=== PATIENT | female | born 1930 | race Caucasian/White ===

== ENCOUNTER 2017-07-21 10:14 | Emergency (ER) | payer MEDICARE, BC ==
[~2017-07-21] VITALS: Ht 154.9 cm; Wt 56.7 kg
[~2017-07-21 10:14] MED LIST: BACTRIM DS TAB1 EACH PO; ESIDRIX25 MG PO; HYDROCHLOROTH12.5 MG PO; LEVAQUIN250 MG PO; LEXAPRO10 MG PO; LISINOPRIL-HCT1 EAC2 PO; LISINOPRIL-HCT1 EACH PO; LISINOPRIL10 MG PO; LOMOTIL TABLET1 EACH PO; MACROBID 100 M100 MG PO; NORCO 5-325 TA1 EACH PO; OMEPRAZOLE20 M1 PO; OMEPRAZOLE40 MG PO; PRAVASTATIN SOD40 MG PO
[2017-07-21 11:22] LABS: BILIRUBIN,URINE NEGATIVE (NEGATIVE); KETONES,URINE NEGATIVE (NEGATIVE); LEUKOCYTE ESTERASE ,URINE 2+ (NEGATIVE); NITRITE,URINE NEGATIVE (NEGATIVE); URINE UROBILINOGEN 0.2 mg/dL (0.2 - 1)
[2017-07-21 11:23] LABS: CLARITY,URINE SL CLOUDY (CLEAR); COLOR,URINE AMBER (YELLOW); PROTEIN,URINE DIPSTICK 2+ (NEGATIVE)
[2017-07-21 11:38] LABS: BACTERIA,URINE FEW /HPF; EPITHELIAL CELLS,URINE FEW /LPF; MUCUS,URINE FEW (RARE); RBC,URINE >50 /HPF (0-5)
== END 2017-07-21 11:42 | disposition home or self-care (01) ==
LOC: ER 10:14
DX: Z43.5 Encounter for attention to cystostomy (principal)
CPT/HCPCS: 81001; 87086; 99283

== ENCOUNTER 2017-08-18 19:18 | Emergency (ER) | payer MEDICARE, BC ==
[~2017-08-18] VITALS: Ht 154.9 cm; Wt 56.7 kg
--- OUTSIDE RECORDS SUMMARY | 2017-08-18 19:21 | XMS REPORT | Continuity of Care Document ---
Author Author [facility] Organization [facility] Address [address] [place] [address] Phone Unavailable Care Team Providers Care Special Shopper Name Role Phone NONSTAFF PCP Unavailable Insurance Providers Guarantor Gabriela Campbell Address [address] [place] [address] Payer [facility] Policy Number [id number] Subscriber's Name AdrianJeniGabriela G Relationship 18 Self / Same As Patient Group Number [id number] Group Name RETIRED Effective Date 00 Payer Medicare A & B Policy Number [id number] Subscriber's Name AdrianJeniGabriela G Relationship 18 Self / Same As Patient Group Number [id number] Group Name RETIRED Effective Date 95 Advance Directives Directive Response Recorded Date/Time Does the patient have an advance directive? Yes 05/19/15 12:20pm If yes, is advance directive on file with [facility]? No 05/19/15 12:20pm If not on file with [facility] will patient provide a copy? Yes 05/19/15 12:20pm Problems Medical Problem Onset Date Status Diarrhea 03/15/2014 Acute Dislodged [place] catheter Unknown Acute Laceration Unknown Acute Skin tear Unknown Acute Suprapubic catheter dysfunction Unknown Acute UTI (lower urinary tract infection) 03/15/2014 Acute Urinary tract infection Unknown Acute Medications Current Home Medications Medication Dose Units Route Directions Days Qty Instructions Start Date Hydrocodone Bit/Acetaminophen ([place] 5-325 Tablet) 1 Each Tablet 1 Each Oral Daily as needed for Pain Lisinopril/Hydrochlorothiazide (Lisinopril-Hctz 5 Mg Tab) 1 Each Tablet 1 Tab Oral Daily Omeprazole 40 Mg Capsule. 20 Mg Oral Daily Past Home Medications Medication Directions Ordered Status Diphenoxylate Hcl/Atropine (Lomotil Tablet) 1 Each Tablet, 2.5 Mg Oral Daily Discontinued Escitalopram Oxalate (Lexapro) 10 Mg Tablet, 10 Mg Oral Daily Discontinued Hydrochlorothiazide 12.5 Mg Tablet, 12.5 Mg Oral Daily Discontinued Hydrochlorothiazide (Esidrix*) 25 Mg Tab, 25 Mg Oral Daily Discontinued Levofloxacin (Levaquin) 250 Mg Tablet, 250 Mg Oral Daily Discontinued Lisinopril 10 Mg Tablet, 10 Mg Oral Daily Discontinued Lisinopril/Hydrochlorothiazide (Lisinopril-Hctz 20-12.5 Mg Tab) 1 Each Tablet, 1 Tab Oral Daily Discontinued Nitrofurantoin Monohyd/M-Cryst (Macrobid 100 Mg Capsule) 100 Mg Capsule, 1 Tab Oral Twice A Day 03/20/14 Discontinued Omeprazole 20 Mg Tablet.dr, 20 Mg Oral Daily Discontinued Omeprazole 40 Mg Capsule.dr, 20 Mg Oral Daily Discontinued Pravastatin Sodium 40 Mg Tablet, 40 Mg Oral Daily Discontinued Sulfamethoxazole/Trimethoprim (Bactrim Ds Tablet) 1 Each Tablet, 1 Each Oral Twice A Day 03/20/14 Discontinued Sulfamethoxazole/Trimethoprim (Bactrim Ds Tablet) 1 Each Tablet, 1 Tab Oral Twice A Day Discontinued Social History Social History Problem Response Recorded Date/Time Onset Date Status Hx Psychiatric Problems Yes 12/22/2016 11:41pm Not Applicable Not Applicable Hx Eating Disorder No 12/22/2016 11:41pm Not Applicable Not Applicable Hx Substance Use Disorder No 12/22/2016 11:41pm Not Applicable Not Applicable Hx Depression No 12/22/2016 11:41pm Not Applicable Not Applicable Hx Alcohol Use No 12/22/2016 11:41pm Not Applicable Not Applicable Hx Substance Use Treatment No 12/22/2016 11:41pm Not Applicable Not Applicable Hx Physical Abuse No 12/22/2016 11:41pm Not Applicable Not Applicable Smoking Status Start Date Stop Date Never Smoker Hospital Discharge Instructions No hospital discharge instruction information available. Plan of Care Discharge Date 07/21/17 11:42am Disposition HOME, SELF-CARE Condition at Discharge Stable Instructions/Education Provided [place] Catheter Care Urinary Tract Infection - Women Forms Provided Work/School Excuse Prescriptions See Medication Section Referrals Dimas Ceron ORI MD Address: [address] [place] [address] Additional Instructions/Education 1. increase oral fluids 2. folow up with Dr Morse in 1-2 days without fail 3. return to ed as needed Functional Status No functional status information available. Allergies, Adverse Reactions, Alerts No known allergies. Immunizations No immunization information available. Vital Signs Acute Vital Signs Vital Response Date/Time Temperature (Fahrenheit) 97.3 degrees F (97.6 - 99.5) 12/23/2016 8:00pm Pulse Pulse Rate (adult) 79 bpm (60 - 90) 12/23/2016 8:00pm Respiratory Rate 17 bpm (12 - 24) 12/23/2016 8:00pm Blood Pressure 130/57 mm Hg 12/23/2016 8:00pm Height 5 ft 1 in 07/21/2017 10:17am Weight 125 lb 07/21/2017 10:17am Body Mass Index 23.6 kg/m^2 07/21/2017 10:17am Results Laboratory Results Test Name Result Units Flags Reference Collection Date/Time Result Date/ Time Comments White Blood Count 12.06 x10e3/uL H 4.8-10.8 12/23/2016 5:50am 2016 6:21am Red Blood Count 3.84 x10e6/uL 3.6-5.1 12/23/2016 5:50am 12/23/2016 6: 21am Hemoglobin 11.1 g/dL L 12.0-16.0 12/23/2016 5:50am 12/23/2016 6:21am Hematocrit 34.8 % 34.2-44.1 12/23/2016 5:50am 12/23/2016 6:21am Mean Corpuscular Volume 90.6 fL 81-99 12/23/2016 5:50am 12/23/2016 6: 21am Mean Corpuscular Hemoglobin 28.9 pg 28-32 12/23/2016 5:50am 12/23/2016 6:21am Mean Corpuscular Hemoglobin Concent 31.9 g/dL 31-35 12/23/2016 5:50am 12/23/2016 6:21am Red Cell Distribution Width 14.4 % 11.7-14.4 12/23/2016 5:50am 2016 6:21am Platelet Count 222 x10e3/uL 140-360 12/23/2016 5:50am 12/23/2016 6: 21am Neutrophils (%) (Auto) 75.8 % 38.7-80.0 12/23/2016 5:50am 12/23/2016 6: 21am Lymphocytes (%) (Auto) 17.7 % L 18.0-39.1 12/23/2016 5:50am 12/23/2016 6 :21am Monocytes (%) (Auto) 4.8 % 4.4-11.3 12/23/2016 5:50am 12/23/2016 6: 21am Eosinophils (%) (Auto) 0.8 % 0.0-6.0 12/23/2016 5:50am 12/23/2016 6: 21am Basophils (%) (Auto) 0.3 % 0.0-1.0 12/23/2016 5:50am 12/23/2016 6:21am IM GRANULOCYTES % 0.6 % 0.0-1.0 12/23/2016 5:50am 12/23/2016 6:21am Neutrophils # (Auto) 9.1 H 2.1-6.9 12/23/2016 5:50am 12/23/2016 6: 21am Lymphocytes # (Auto) 2.1 1.0-3.2 12/23/2016 5:50am 12/23/2016 6:21am Monocytes # (Auto) 0.6 0.2-0.8 12/23/2016 5:50am 12/23/2016 6:21am Eosinophils # (Auto) 0.1 0.0-0.4 12/23/2016 5:50am 12/23/2016 6:21am Basophils # (Auto) 0.0 0.0-0.1 12/23/2016 5:50am 12/23/2016 6:21am Absolute Immature Granulocyte (auto 0.07 x10e3/uL 0-0.1 12/23/2016 5: 50am 12/23/2016 6:21am Prothrombin Time 14.6 seconds H 11.9-14.5 12/22/2016 7:25pm 12/22/2016 7 :39pm Prothromb Time International Ratio 1.08 12/22/2016 7:25pm 2016 7:39pm Oral Anticoagulant Therapy INR Values: 1. Low Intensity Therapy 1.5 - 2.0 2. Moderate Intensity Therapy 2.0 - 3.0 3. High Intensity Therapy(1) 2.5 - 3.5 4. High Intensity Therapy(2) 3.0 - 4.0 5. Panic Value INR > 5.0 Activated Partial Thromboplast Time 31.7 seconds 23.8-35.5 12/22/2016 7: 25pm 12/22/2016 7:41pm Sodium Level 144 mmol/L 136-145 12/23/2016 5:50am 12/23/2016 6:43am Potassium Level 4.6 mmol/L 3.5-5.1 12/23/2016 5:50am 12/23/2016 6:43am Chloride Level 109 mmol/L H 98-107 12/23/2016 5:50am 12/23/2016 6:43am Carbon Dioxide Level 25 mmol/L 22-29 12/23/2016 5:50am 12/23/2016 6: 43am Anion Gap 14.6 mmol/L 8-12/23/2016 5:50am 12/23/2016 6:43am Blood Urea Nitrogen 22 mg/dL 7-12/23/2016 5:50am 12/23/2016 6:43am Creatinine 1.11 mg/dL 0.57-1.11 12/23/2016 5:50am 12/23/2016 6:43am BUN/Creatinine Ratio 20 6-25 12/23/2016 5:50am 12/23/2016 6:43am Estimat Glomerular Filtration Rate 47 ML/MIN L 60- 12/23/2016 5:50am 6:43am Ranges were taken from the National Kidney Disease Education Program and the National Kidney Foundation literature. Reference ranges: 60 or greater: Normal 16-59 (for 3 consecutive months): Chronic kidney disease 15 or less: Kidney failure Glucose Level 127 mg/dL H 74-118 12/23/2016 5:50am 12/23/2016 6:43am Calcium Level 8.7 mg/dL 8.4-10.2 12/23/2016 5:50am 12/23/2016 6:43am Total Bilirubin 0.5 mg/dL 0.2-1.2 12/23/2016 5:50am 12/23/2016 6:43am Aspartate Amino Transf (AST/SGOT) 10 IU/L 5-34 12/23/2016 5:50am 2016 6:43am Alanine Aminotransferase (ALT/SGPT) 7 IU/L 0-55 12/23/2016 5:50am 12/23 6:43am Total Protein 6.7 g/dL 6.5-8.1 12/23/2016 5:50am 12/23/2016 6:43am Albumin 2.8 g/dL L 3.5-5.0 12/23/2016 5:50am 12/23/2016 6:43am Globulin 3.9 g/dL H 2.3-3.5 12/23/2016 5:50am 12/23/2016 6:43am Albumin/Globulin Ratio 0.7 L 0.8-2.0 12/23/2016 5:50am 12/23/2016 6: 43am Alkaline Phosphatase 86 IU/L 40-150 12/23/2016 5:50am 12/23/2016 6: 43am Urine Color RICHY H YELLOW 07/21/2017 11:00am 07/21/2017 11:23am Urine Clarity SL CLOUDY CLEAR 07/21/2017 11:00am 07/21/2017 11:23am Urine Specific [place] 1.015 1.010-1.025 07/21/2017 11:00am 2017 11:23am Urine pH 6.5 5 - 7 07/21/2017 11:00am 07/21/2017 11:23am Urine Leukocyte Esterase 2+ H NEGATIVE 07/21/2017 11:00am 07/21/2017 11:23am Urine Nitrite NEGATIVE NEGATIVE 07/21/2017 11:00am 07/21/2017 11: 23am Urine Protein 2+ H NEGATIVE 07/21/2017 11:00am 07/21/2017 11:23am Urine Glucose (UA) NEGATIVE NEGATIVE 07/21/2017 11:00am 07/21/2017 11 :23am Urine Ketones NEGATIVE NEGATIVE 07/21/2017 11:00am 07/21/2017 11: 23am Urine Urobilinogen 0.2 mg/dL 0.2 - 1 07/21/2017 11:00am 07/21/2017 11: 23am Urine Bilirubin NEGATIVE NEGATIVE 07/21/2017 11:00am 07/21/2017 11: 23am Urine Blood 4+ H NEGATIVE 07/21/2017 11:00am 07/21/2017 11:23am Urine WBC 11-20 /HPF H 0-5 07/21/2017 11:00am 07/21/2017 11:38am Urine RBC >50 /HPF H 0-5 07/21/2017 11:00am 07/21/2017 11:38am Urine Bacteria FEW /HPF NONE 07/21/2017 11:00am 07/21/2017 11:38am Urine Epithelial Cells FEW /LPF NONE 07/21/2017 11:00am 07/21/2017 11: 38am Urine Mucus FEW H RARE 07/21/2017 11:00am 07/21/2017 11:38am Procedures Procedure Status Date Provider(s) INSERT TEMP BLADDER CATH Completed 11/06/16 ALYCIA EATON MD CHANGE OF BLADDER TUBE Completed 12/01/16 LORRAINE WALSH MD CHANGE OF BLADDER TUBE Completed 12/14/16 LORRAINE WALSH MD CHANGE OF BLADDER TUBE Completed 12/22/16 MILAGROS CULVER MD HYDRATION IV INFUSION INIT Completed 12/22/16 CHANGE OF BLADDER TUBE Completed 01/20/17 CANDY FRAGOSO MD Encounters Encounter Location Arrival/Admit Date Discharge/Depart Date Attending Provider Departed Emergency [facility] 07/21/17 10:14am 07/21 11:42am JESSICA COLÓN Departed Emergency [facility] 01/20/17 7:31am 9:59am CANDY FRAGOSO MD Discharged Inpatient (obs) [facility] 12/22/16 10:25pm 6:32pm NIRMAL NIELSON MD Departed Emergency [facility] 12/14/16 8:43pm 12:13am LORRAINE WALSH MD Departed Emergency [facility] 12/13/16 10:13am 12/13 10:34am CANDY FRAGOSO MD Departed Emergency [facility] 12/01/16 7:41pm 1:29am LORRAINE WALSH MD Departed Emergency Room [facility] 11/06/16 6:34am 8:54am ALYCIA EATON MD
[2017-08-18 20:16] VITALS: BP 141/51
== END 2017-08-18 20:33 | disposition home or self-care (01) ==
LOC: ER 19:18
DX: T83.028A Displacement of other urinary catheter, initial encounter (principal)
CPT/HCPCS: 99282

== ENCOUNTER 2017-08-24 19:28 | Observation (INO) | payer MEDICARE, BC ==
[~2017-08-24] VITALS: Ht 144.8 cm; Wt 54.5 kg
--- OUTSIDE RECORDS SUMMARY | 2017-08-24 19:31 | XMS REPORT | Continuity of Care Document ---
Author Author [facility] Organization [facility] Address [address] [place] [address] Phone Unavailable Care Team Providers Care Account Group Supervisor Name Role Phone NONSTAFF PCP Unavailable Insurance Providers Guarantor Gabriela Campbell Address [address] [place] [address] [facility]ayer [facility] Policy Number [id number] Subscriber's Name AdrianJeniGabriela G Relationship 18 Self / Same As Patient Group Number [id number] Group Name RETIRED Effective Date 00 Payer Medicare A & B Policy Number [id number] Subscriber's Name AdrianJeniGabriela G Relationship 18 Self / Same As Patient Group Number [id number] Group Name RETIRED Effective Date 95 Advance Directives Directive Response Recorded Date/Time Does the patient have an advance directive? Yes 05/19/15 12:20pm If yes, is advance directive on file with [facility]? No 05/19/15 12:20pm If not on file with [facility] will patient provide a copy? Yes 05/19/15 12:20pm Do you have a Directive to Physician? No 08/18/17 7:30pm Do you have a Medical Power of Credit Risk Modeler? No 08/18/17 7:30pm Do you have an out of hospital Do Not Resuscitate Order? No 08/18/17 7:30pm Do you have any special needs we should be aware of? No 08/18/17 7:30pm Do you have a support person here with you today? Yes 08/18/17 7:30pm Did patient receive Notice of Privacy Practices? Yes 08/18/17 7:30pm Did patient receive patient rights and responsibilities? Yes 08/18/17 7:30pm Problems Medical Problem Onset Date Status Diarrhea 03/15/2014 Acute Dislodged [place] catheter Unknown Acute Laceration Unknown Acute Skin tear Unknown Acute Suprapubic catheter dysfunction Unknown Acute UTI (lower urinary tract infection) 03/15/2014 Acute Urinary tract infection Unknown Acute Medications Current Home Medications Medication Dose Units Route Directions Days Qty Instructions Start Date Hydrocodone Bit/Acetaminophen ([place] 5-325 Tablet) 1 Each Tablet 1 Each Oral Daily as needed for Pain Lisinopril/Hydrochlorothiazide (Lisinopril-Hctz 10-12.5 Mg Tab) 1 Each Tablet 1 Tab Oral Daily Omeprazole 40 Mg Capsule.dr 20 Mg Oral Daily Past Home Medications [...] information available. Plan of Care Discharge Date 08/18/17 8:33pm Disposition HOME, SELF-CARE Condition at Discharge Stable Instructions/Education Provided [place] Catheter Care Forms Provided Work/School Excuse Prescriptions See Medication Section Referrals Dimas Ceron Additional Instructions/Education 1. follow up with your doctor in 1-2 days without fail 2. return to ed as needed Functional Status No functional status information available. Allergies, Adverse Reactions, Alerts No known allergies. Immunizations No immunization information available. Vital Signs Acute Vital Signs Vital Response Date/Time Temperature (Fahrenheit) 97.3 degrees F (97.6 - 99.5) 12/23/2016 8:00pm Pulse Pulse Rate (adult) 95 bpm (60 - 90) 08/18/2017 8:16pm Respiratory Rate 16 bpm (12 - 24) 08/18/2017 8:16pm Blood Pressure 141/51 mm Hg 08/18/2017 8:16pm Height 5 ft 1 in 08/18/2017 7:47pm Weight 125 lb 08/18/2017 7:47pm Body Mass Index 23.6 kg/m^2 08/18/2017 7:47pm Results Laboratory Results Test Name Result Units [...] CLEAR 07/21/2017 11:00am 07/21/2017 11:23am Urine Specific [place] 1.015 1.010-1.025 07/21/2017 11:00am 2017 11:23am Urine [...] BLADDER TUBE Completed 01/20/17 CANDY FRAGOSO MD CHANGE OF BLADDER TUBE Completed 07/21/17 JESSICA COLÓN Encounters Encounter Location Arrival/Admit Date Discharge/Depart Date Attending Provider Departed Emergency Room [facility] 08/18/17 7:18pm 8:33pm BHUMI ARANGO MD Departed Emergency Room [facility] 07/21/17 10:14am 07/21 11:42am JESSICA COLÓN Departed Emergency Room [facility] 01/20/17 7:31am 9:59am CANDY FRAGOSO MD Discharged Inpatient (obs) [facility] 12/22/16 10:25pm 6:32pm NIRMAL NIELSON MD Departed Emergency [facility] 12/14/16 8:43pm 12:13am LORRAINE WALSH MD Departed Emergency [facility] 12/13/16 10:13am 12/13 10:34am CANDY FRAGOSO MD Departed Emergency [facility] 12/01/16 7:41pm 1:29am LORRAINE WALSH MD Departed Emergency [facility] 11/06/16 6:34am 8:54am ALYCIA EATON MD
[2017-08-24 21:37] LABS: BASOPHILS % 0.5 % (0.0-1.0); EOSINOPHILS # (AUTO) 0.3 (0.0-0.4); EOSINOPHILS % 4.6 % (0.0-6.0); HEMATOCRIT 37.5 % (34.2-44.1); HEMOGLOBIN 12.1 g/dL (12.0-16.0); LYMPHOCYTES # (AUTO) 2.2 (1.0-3.2); LYMPHOCYTES % 36.4 % (18.0-39.1); MEAN CORPUSCULAR HEMOGLOBIN 29.2 pg (28-32); MEAN CORPUSCULAR HGB CONC 32.3 g/dL (31-35); MEAN CORPUSCULAR VOLUME 90.4 fL (81-99); MONOCYTES # (AUTO) 0.4 (0.2-0.8); MONOCYTES % 7.4 % (4.4-11.3); NEUTROPHILS % 50.8 % (38.7-80.0); PLATELET COUNT 192 x10e3/uL (140-360); RED BLOOD COUNT 4.15 x10e6/uL (3.6-5.1); RED CELL DISTRIBUTION WIDTH 14.9 % (11.7-14.4)
[2017-08-24 21:44] LABS: INR 1.22; PROTHROMBIN TIME 14.5 seconds (11.9-14.5)
[2017-08-24 21:45] LABS: PARTIAL THROMBOPLASTIN TIME 28.4 seconds (23.8-35.5)
[2017-08-24 21:54] LABS: ALBUMIN 3.2 g/dL (3.5-5.0); ALBUMIN/GLOBULIN RATIO 0.7 (0.8-2.0); ANION GAP 10.7 mmol/L (8-16); CREATININE, SERUM 1.12 mg/dL (0.57-1.11); POTASSIUM 3.7 mmol/L (3.5-5.1)
[2017-08-24] MEDS: SODIUM CHLORIDE 0.9% 1000ML 1,000 ML IV SCH (22:59)
[2017-08-24 23:00] VITALS: BP 160/73
[2017-08-24] MEDS ORDERED: HYDROCODONE/APAP 5MG-325MG TAB PO PRN (23:15)
[2017-08-24 23:25] VITALS: BP 198/83
[2017-08-25] VITALS (7 sets, daily range): BP systolic 131–173; BP diastolic 66–82
[2017-08-25] MEDS: SODIUM CHLORIDE 0.9% 1000ML 1,000 ML IV SCH ×2 (00:12→09:42)
[2017-08-25] MEDS ORDERED: HYDROCHLOROTHIAZIDE 25 MG TAB PO SCH (09:00)
[2017-08-25] MEDS ORDERED: LISINOPRIL 10 MG TAB PO SCH (09:00)
[2017-08-25] MEDS ORDERED: PANTOPRAZOLE SOD 40 MG TABEC PO SCH (09:00)
[2017-08-25] MEDS ORDERED: HYDROCODONE/APAP 5MG-325MG TAB PO PRN (09:15)
[2017-08-25] MEDS ORDERED: CEFTRIAXONE SOD 1 GM/NS 50 ML 50 ML IV SCH (09:15)
[2017-08-25] MEDS ORDERED: CEFTRIAXONE SOD 1 GM VIAL IV SCH (09:15)
--- NOTE | 2017-08-25 09:32 | History and Physical ---
CHIEF COMPLAINT: Dislodged suprapubic [place] catheter. 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 The patient is now with a chronic suprapubic catheter with atrophic vaginal and suprapubic [place] catheter dysfunction. It was unable to be replaced in the emergency room. The patient is pending for interventional radiology to do the procedure. PAST MEDICAL HISTORY: Baseline dementia, contracted urinary bladder, suprapubic catheter, urinary incontinence, neurogenic bladder, recurrent urinary tract infection, history of hysterectomy, history of CVA, dementia, chronic kidney disease, stage 2. SOCIAL HISTORY: The patient's history is not available. PHYSICAL EXAMINATION VITAL SIGNS: Temperature is 98, blood pressure 152/69, pulse rate 75, respirations 18. GENERAL: The patient is not in acute distress. She is awake. HEENT: Normocephalic, atraumatic and anicteric. NECK: Supple grossly. PULMONARY: Clear. CARDIOVASCULAR: Regular rate and rhythm. ABDOMEN: Suprapubic catheter is out. EXTREMITIES: No cyanosis or clubbing. NEUROLOGIC: Limitation. LABORATORY: Sodium 138, potassium 3.7, chloride 102, bicarb 29, BUN 26, creatinine 1.1, glucose 140. WBC is 5.9, hemoglobin 12, hematocrit 37.5, platelets 192,000. IMPRESSION 1. Dislodged suprapubic urinary catheter. 2. Multiple chronic baseline problems. PLAN: Continue with home medications. Replace suprapubic catheter. Will be done by interventional radiology on consult. Will monitor the patient closely. Job#: [id number] TYSON
[2017-08-25] MEDS ORDERED: IOPAMIDOL 300 MG/ML 15ML VIAL IT ONE (11:42)
--- NOTE | 2017-08-25 12:14 | Consultation ---
DATE OF CONSULTATION: August 25, 2017 UROLOGY CONSULTATION CONSULTATION CALLED BY: Dr. Quene. CHIEF UROLOGIC COMPLAINT/REASON FOR CONSULTATION: Urinary retention, suprapubic tube malfunction. HISTORY OF PRESENT ILLNESS: Gabriela Campbell is an 86-year-old female patient of Dr. Elizabeth Quiros, whom I am covering. At home, the SP tube fell out. She presented to the emergency room. Interventional radiology is set to change the tube under fluoroscopy today. The patient has had recurrent urinary tract infections and history of hematuria with uterine cancer. PAST MEDICAL HISTORY: Please see office chart for extensive review. MEDICATIONS: Please see MAR. ALLERGIES: NKDA. SOCIAL HISTORY: No smoking or drinking. FAMILY HISTORY: No urologic stones or malignancies. REVIEW OF SYSTEMS: Noncontributory other than problems listed above. PHYSICAL EXAMINATION GENERAL: Elderly female in no acute distress. VITAL SIGNS: Currently, she is afebrile with stable vital signs. HEENT: Sclerae anicteric. NECK: Supple. BACK: Without costovertebral angle tenderness bilaterally. ABDOMEN: Soft. It is nontender. It is nondistended. No palpable mass. No palpable hernias. No palpable lymphadenopathy. : Normal female external genitalia. EXTREMITIES: Without edema. NEUROLOGIC: Moves extremities. PSYCH: Alert. Mood appropriate. SKIN: Intact. Normal color. No SP tube. IMPRESSION 1. Chronic urinary retention with neurogenic bladder. 2. Suprapubic tube pulled out. 3. Urinary tract infections, chronic. PLAN: We will have IR change SP tube. After this is done, the patient can be safely discharged to home. Thank you for allowing us to participate in the care of your patient. We will be happy to follow her along with you as an outpatient. Job#: [id number] VAS cc:Dr. Tristin Queen
[2017-08-25] MEDS ORDERED: IOPAMIDOL 300MG/ML 100 ML INFUS..BTL IV ONE (13:40)
--- NOTE | 2017-08-25 14:40 | Diagnostic Imaging Report ---
PROCEDURE:SUPRAPUBIC CATHETER PLACEMENT COMPARISON:Suprapubic catheter placement 12/23/2016. INDICATIONS: SUPRAPUBIC CATHER PLACEMENT COMPLICATIONS: None. MEDICATIONS: None. BLOOD LOSS: Less than 2 cc. PROCEDURE: The patient was placed supine on the fluoroscopy table. Weatherization Administrator film was obtained of the abdomen. Focused examination demonstrated a stoma in the lower anterior abdominal wall with urine. The stoma was prepped and draped in the usual sterile fashion. A 6 Tajik dilator was advanced through the stoma. Hand contrast injection confirmed intraluminal position within the urinary bladder. A 0.035 wire was advanced through the dilator and was coiled within the urinary bladder. Serial dilations were performed over the wire. A 16 [place] catheter was advanced over the wire. The catheter tip was positioned within the urinary bladder. The balloon was inflated with 10 cc of sterile saline. Contrast opacification and aspiration confirm proper function of the catheter. Sterile dressing was applied. The patient tolerated the procedure well. There were no immediate complications. Patient was transferred to the post procedure area in stable unchanged condition for further monitoring. CONCLUSION: Successful placement of a suprapubic catheter utilizing fluoroscopic guidance. Dictated by: Tristin Barajas M.D. on 08/25/2017 at 14:41 Electronically approved by: Tristin Barajas M.D. on 08/25/2017 at 14:41
== END 2017-08-25 19:31 | disposition home or self-care (01) ==
LOC: ER 19:28 → ERHOLD 22:09 → IMCU 22:56
PROVIDERS: ADMIT Internal Medicine; ATTEND Internal Medicine
DX: T83.028A Displacement of other urinary catheter, initial encounter (principal); N31.9 Neuromuscular dysfunction of bladder, unspecified; N95.2 Postmenopausal atrophic vaginitis; F03.90 Unspecified dementia, unspecified severity, without behavioral disturbance, psychotic disturbance, mood disturbance, and anxiety; R32 Unspecified urinary incontinence; Z86.73 Personal history of transient ischemic attack (TIA), and cerebral infarction without residual deficits; N18.2 Chronic kidney disease, stage 2 (mild); Z87.440 Personal history of urinary (tract) infections
CPT/HCPCS: 36415; 51102; 74470; 77002; 80053; 85025; 85610; 85730; 99283; G0378 ×2; J0696; J7030 ×2; Q9967

== ENCOUNTER 2017-10-31 19:19 | Inpatient (IN) | payer MEDICARE, BC ==
[~2017-10-31] VITALS: Ht 144.8 cm; Wt 54.4 kg
[2017-10-31 19:47] LABS: BASOPHILS % 0.2 % (0.0-1.0); EOSINOPHILS # (AUTO) 0.2 (0.0-0.4); EOSINOPHILS % 2.4 % (0.0-6.0); HEMATOCRIT 38.4 % (34.2-44.1); HEMOGLOBIN 12.4 g/dL (12.0-16.0); LYMPHOCYTES % 35.2 % (18.0-39.1); MEAN CORPUSCULAR HEMOGLOBIN 28.9 pg (28-32); MEAN CORPUSCULAR HGB CONC 32.3 g/dL (31-35); MEAN CORPUSCULAR VOLUME 89.5 fL (81-99); MONOCYTES # (AUTO) 0.5 (0.2-0.8); MONOCYTES % 6.1 % (4.4-11.3); NEUTROPHILS # (AUTO) 4.8 (2.1-6.9); NEUTROPHILS % 55.4 % (38.7-80.0); PLATELET COUNT 146 x10e3/uL (140-360); RED BLOOD COUNT 4.29 x10e6/uL (3.6-5.1); RED CELL DISTRIBUTION WIDTH 15.1 % (11.7-14.4)
[2017-10-31 19:52] LABS: BILIRUBIN,URINE NEGATIVE (NEGATIVE); CLARITY,URINE TURBID (CLEAR); COLOR,URINE YELLOW (YELLOW); KETONES,URINE NEGATIVE (NEGATIVE); LEUKOCYTE ESTERASE ,URINE 2+ (NEGATIVE); NITRITE,URINE POSITIVE (NEGATIVE); PROTEIN,URINE DIPSTICK 2+ (NEGATIVE); URINE UROBILINOGEN 0.2 mg/dL (0.2 - 1)
[2017-10-31 20:03] LABS: ALANINE AMINOTRANSFERASE 6 IU/L (0-55); ALBUMIN 3.1 g/dL (3.5-5.0); ALBUMIN/GLOBULIN RATIO 0.7 (0.8-2.0); ALKALINE PHOSPHATASE 78 IU/L (40-150); ANION GAP 12.8 mmol/L (8-16); BLOOD UREA NITROGEN 25 mg/dL (7-26); BUN/CREATININE RATIO 18 (6-25); CALCIUM 9.1 mg/dL (8.4-10.2); CARBON DIOXIDE 26 mmol/L (22-29); CHLORIDE 104 mmol/L (98-107); CREATINE KINASE 17 IU/L (29-168); CREATININE, SERUM 1.38 mg/dL (0.57-1.11); EST GLOMERULAR FILTRATION RATE 36 ML/MIN (60-); GLUCOSE 133 mg/dL (74-118); POTASSIUM 3.8 mmol/L (3.5-5.1); SODIUM 139 mmol/L (136-145); WBC,URINE (MAN) 21-50 /HPF (0-5)
[2017-10-31 20:04] LABS: BACTERIA,URINE MANY /HPF; RBC,URINE 21-50 /HPF (0-5)
--- NOTE | 2017-10-31 20:05 | Diagnostic Imaging Report ---
EXAMINATION: CHEST SINGLE (PORTABLE) INDICATION: \S\WEAKNESS \S\[id number] \S\1945 \S\Y COMPARISON: 05/19/2015 FINDINGS: AP view TUBES and LINES: None. LUNGS and pleura: Lungs are well inflated. There is a large soft tissue density overlying the cardiac shadow. Small left pleural effusion suspected. No visible pneumothorax. HEART AND MEDIASTINUM: The cardiomediastinal silhouette is unremarkable. Aorta is calcified and mildly tortuous. BONES AND SOFT TISSUES: No acute osseous lesion. Soft tissues are unremarkable. UPPER ABDOMEN: No free air under the diaphragm. IMPRESSION: Large soft tissue density overlying cardiac shadow and bilateral lower lung su, could represent a large hiatal hernia, which has increased in size when compared to prior x-ray. Recommend chest CT for further evaluation. Signed by: Dr. Michael Garay MD on 10/31/2017 8:01 PM
[2017-10-31] MEDS ORDERED: CEFTRIAXONE SOD 1 GM VIAL ONE (20:26)
[2017-10-31] MEDS ORDERED: CEFTRIAXONE SOD 1 GM VIAL IV ONE (20:30)
[2017-10-31] MEDS ORDERED: OMEPRAZOLE20 MG PO (20:34)
[2017-10-31] MEDS ORDERED: LISINOPRIL20 MG PO (20:34)
--- NOTE | 2017-10-31 21:45 | Diagnostic Imaging Report ---
EXAM: CT Chest WITHOUT contrast 10/31/2017 8:24 PM INDICATION: Weakness , soft tissue density overlying the cardiac silhouette needs additional more sensitive evaluation. COMPARISON: Chest x-ray on 10/31/2017 TECHNIQUE: Chest was scanned utilizing a multidetector helical scanner from the lung apex through the level of the adrenal glands without administration of IV contrast. Absence of intravenous contrast decreases sensitivity for detection of lymphadenopathy and vascular pathology. Coronal and sagittal reformations were obtained. Routine protocol was performed. IV CONTRAST: None RADIATION DOSE: Total DLP: 446.82 mGy*cm Estimated effective dose: (DLP x 0.014 x size factor) mSv COMPLICATIONS: None FINDINGS: LINES/ TUBES: None. LUNGS AND AIRWAYS: There is bibasilar atelectasis. Airways are normal. PLEURA: The pleural spaces are clear. HEART AND MEDIASTINUM: The thyroid gland is normal. No mediastinal, hilar or axillary lymphadenopathy. The heart is normal in size.. There is no pericardial effusion. There are significant atherosclerotic calcifications in the aorta and coronary arteries. There is a large sliding hiatal hernia containing a stomach (organoaxial volvulus), pancreas and mesenteric fat UPPER ABDOMEN: Limited non-contrast views of the upper abdomen show no abnormality. Atherosclerotic disease of the abdominal aorta BONES: There are degenerative changes in the thoracic spine. SOFT TISSUES: Unremarkable. IMPRESSION: 1. The described opacity in the retrocardiac space is consistent with a large sliding hiatal hernia containing stomach, pancreas and mesenteric fat. Nonobstructive organoaxial volvulus of the stomach is present 2. Advanced coronary artery disease. Signed by: Dr. Braulio Simon M.D. on 10/31/2017 9:41 PM
[2017-10-31] MEDS ORDERED: ONDANSETRON HCL INJ 2 MG/ML VIAL IV PRN (22:15)
[2017-10-31] MEDS ORDERED: CEFTRIAXONE SOD 1 GM VIAL IV SCH (22:15)
[2017-10-31] MEDS: SODIUM CHLORIDE 0.9% 1000ML 1,000 ML IV SCH (22:46)
[2017-10-31 22:49] VITALS: BP 143/66
[2017-11-01] VITALS (8 sets, daily range): BP systolic 122–165; BP diastolic 56–67
[2017-11-01 05:20] LABS: BASOPHILS % 0.4 % (0.0-1.0); EOSINOPHILS # (AUTO) 0.1 (0.0-0.4); EOSINOPHILS % 2.1 % (0.0-6.0); HEMATOCRIT 32.7 % (34.2-44.1); HEMOGLOBIN 10.4 g/dL (12.0-16.0); LYMPHOCYTES # (AUTO) 1.1 (1.0-3.2); LYMPHOCYTES % 20.2 % (18.0-39.1); MEAN CORPUSCULAR HEMOGLOBIN 28.8 pg (28-32); MEAN CORPUSCULAR HGB CONC 31.8 g/dL (31-35); MEAN CORPUSCULAR VOLUME 90.6 fL (81-99); MONOCYTES # (AUTO) 0.3 (0.2-0.8); MONOCYTES % 4.7 % (4.4-11.3); NEUTROPHILS # (AUTO) 3.8 (2.1-6.9); PLATELET COUNT 109 x10e3/uL (140-360); RED BLOOD COUNT 3.61 x10e6/uL (3.6-5.1)
[2017-11-01 05:41] LABS: ALBUMIN 2.5 g/dL (3.5-5.0); ALBUMIN/GLOBULIN RATIO 0.7 (0.8-2.0); ALKALINE PHOSPHATASE 61 IU/L (40-150); ANION GAP 10.6 mmol/L (8-16); BLOOD UREA NITROGEN 24 mg/dL (7-26); BUN/CREATININE RATIO 21 (6-25); CALCIUM 8.1 mg/dL (8.4-10.2); CARBON DIOXIDE 24 mmol/L (22-29); CHLORIDE 110 mmol/L (98-107); CREATININE, SERUM 1.13 mg/dL (0.57-1.11); EST GLOMERULAR FILTRATION RATE 46 ML/MIN (60-); GLUCOSE 112 mg/dL (74-118); POTASSIUM 3.6 mmol/L (3.5-5.1); SODIUM 141 mmol/L (136-145)
[2017-11-01 05:45] LABS: ALANINE AMINOTRANSFERASE < 6 IU/L (0-55)
[2017-11-01 05:47] LABS: CHOL/HDL RATIO 3.9 (3.0-3.6)
[2017-11-01 05:49] LABS: B-TYPE NATRIURETIC PEPTIDE2 94.9 pg/mL (0-100)
[2017-11-01] MEDS ORDERED: MAGNESIUM SULFATE 2GM/50ML 50 ML IV ONE (06:00)
[2017-11-01 06:07] LABS: FREE T4 (FREE THYROXINE) 0.89 ng/dL (0.9-1.8); THYROID STIMULATING HORMONE 1.887 uIU/mL (0.350-4.940)
[2017-11-01] MEDS ORDERED: HYDRALAZINE HCL 20 MG/ML VIAL IV PRN (06:30)
[2017-11-01] MEDS ORDERED: ACETAMINOPHEN 325 MG TAB PO PRN (06:30)
[2017-11-01] MEDS ORDERED: CALCIUM GLUCONATE 10% INJ 9.3 MEQ in SODIUM CHLORIDE 0.9% 100 ML 100 ML IV ONE (06:45)
[2017-11-01] MEDS: LISINOPRIL 20 MG TAB PO SCH (08:20)
[2017-11-01] MEDS: DOCUSATE SODIUM 100 MG CAP PO SCH ×2 (08:20→17:45)
[2017-11-01] MEDS: PANTOPRAZOLE SOD 40 MG TABEC PO SCH (08:20)
[2017-11-01] MEDS: POLYETHYLENE GLYCOL 3350 17 GM PACK PO SCH (08:20)
[2017-11-01] MEDS: MAGNESIUM OXIDE 400 MG TAB PO SCH ×4 (08:20→21:14)
[2017-11-01] MEDS: OYST-CAL-D 500MG TABLET PO SCH ×2 (08:22→17:45)
[2017-11-01] MEDS: ENOXAPARIN SOD INJ 40 MG/0.4 ML SYR SC SCH (09:12)
[2017-11-01] MEDS ORDERED: CLONIDINE HCL 0.1 MG TAB PO PRN (12:45)
[2017-11-01] MEDS: CEFTRIAXONE SOD 1 GM VIAL IV SCH (21:14)
[2017-11-01] MEDS: SODIUM CHLORIDE 0.9% 1000ML 1,000 ML IV SCH (23:37)
[2017-11-02] VITALS (7 sets, daily range): BP systolic 103–148; BP diastolic 51–77
[2017-11-02 03:54] LABS: BASOPHILS % 0.5 % (0.0-1.0); EOSINOPHILS # (AUTO) 0.2 (0.0-0.4); EOSINOPHILS % 2.8 % (0.0-6.0); HEMATOCRIT 36.4 % (34.2-44.1); HEMOGLOBIN 11.7 g/dL (12.0-16.0); LYMPHOCYTES % 49.2 % (18.0-39.1); MEAN CORPUSCULAR HEMOGLOBIN 28.6 pg (28-32); MEAN CORPUSCULAR HGB CONC 32.1 g/dL (31-35); MONOCYTES # (AUTO) 0.4 (0.2-0.8); MONOCYTES % 6.5 % (4.4-11.3); NEUTROPHILS # (AUTO) 2.5 (2.1-6.9); NEUTROPHILS % 40.5 % (38.7-80.0); PLATELET COUNT 114 x10e3/uL (140-360); RED BLOOD COUNT 4.09 x10e6/uL (3.6-5.1); RED CELL DISTRIBUTION WIDTH 14.9 % (11.7-14.4)
[2017-11-02 04:22] LABS: ANION GAP 11.3 mmol/L (8-16); CREATININE, SERUM 1.1 mg/dL (0.57-1.11); MAGNESIUM 1.7 MG/DL (1.3-2.1); POTASSIUM 4.3 mmol/L (3.5-5.1)
[2017-11-02] MEDS: OYST-CAL-D 500MG TABLET PO SCH ×2 (08:34→15:07)
[2017-11-02] MEDS: POLYETHYLENE GLYCOL 3350 17 GM PACK PO SCH (08:34)
[2017-11-02] MEDS: ENOXAPARIN SOD INJ 40 MG/0.4 ML SYR SC SCH (08:34)
[2017-11-02] MEDS: PANTOPRAZOLE SOD 40 MG TABEC PO SCH (08:34)
[2017-11-02] MEDS: LISINOPRIL 20 MG TAB PO SCH (08:34)
[2017-11-02] MEDS: MAGNESIUM OXIDE 400 MG TAB PO SCH ×4 (08:34→21:15)
[2017-11-02] MEDS: DOCUSATE SODIUM 100 MG CAP PO SCH ×2 (08:34→15:07)
[2017-11-02] MEDS ORDERED: SENNOSIDES 8.6 MG TAB PO ONE (15:00)
[2017-11-02] MEDS: GUAIFENESIN 600 MG TAB PO SCH (16:48)
[2017-11-02] MEDS: CEFTRIAXONE SOD 1 GM VIAL IV SCH (21:15)
[2017-11-03] VITALS (7 sets, daily range): BP systolic 111–137; BP diastolic 55–63
[2017-11-03] MEDS: GUAIFENESIN 600 MG TAB PO SCH ×4 (00:22→18:00)
[2017-11-03 04:14] LABS: ANION GAP 10.3 mmol/L (8-16); CALCIUM 8.7 mg/dL (8.4-10.2); CREATININE, SERUM 0.93 mg/dL (0.57-1.11); MAGNESIUM 1.8 MG/DL (1.3-2.1); POTASSIUM 4.3 mmol/L (3.5-5.1)
[2017-11-03 04:23] LABS: BASOPHILS % 0.3 % (0.0-1.0); EOSINOPHILS # (AUTO) 0.2 (0.0-0.4); EOSINOPHILS % 3.3 % (0.0-6.0); HEMATOCRIT 35.6 % (34.2-44.1); HEMOGLOBIN 11.3 g/dL (12.0-16.0); LYMPHOCYTES % 29.9 % (18.0-39.1); MEAN CORPUSCULAR HEMOGLOBIN 28.3 pg (28-32); MEAN CORPUSCULAR HGB CONC 31.7 g/dL (31-35); MONOCYTES # (AUTO) 0.6 (0.2-0.8); NEUTROPHILS # (AUTO) 3.8 (2.1-6.9); NEUTROPHILS % 57.2 % (38.7-80.0); PLATELET COUNT 132 x10e3/uL (140-360); RED CELL DISTRIBUTION WIDTH 15.1 % (11.7-14.4)
--- NOTE | 2017-11-03 07:01 | Diagnostic Imaging Report ---
EXAMINATION: CHEST SINGLE (PORTABLE) INDICATION: Pneumonia. COMPARISON: Chest CT on 10/31/2017 FINDINGS: TUBES and LINES: None. LUNGS: Lungs are not well inflated. There are bibasilar atelectasis. Right lower lobe confluent airspace opacity may represent atelectasis versus pneumonia. PLEURA: Small right pleural effusion. HEART AND MEDIASTINUM: The cardiomediastinal silhouette is again remarkable for large hiatal hernia. BONES AND SOFT TISSUES: No acute osseous lesion. Soft tissues are unremarkable. UPPER ABDOMEN: No free air under the diaphragm. IMPRESSION: Developing right lower lobe airspace disease and pleural effusion is suggestive of atelectasis versus pneumonia. Signed by: Dr. Braulio Simon M.D. on 11/03/2017 6:58 AM
[2017-11-03] MEDS: ENOXAPARIN SOD INJ 40 MG/0.4 ML SYR SC SCH (09:27)
[2017-11-03] MEDS: MAGNESIUM OXIDE 400 MG TAB PO SCH ×4 (09:27→21:34)
[2017-11-03] MEDS: PANTOPRAZOLE SOD 40 MG TABEC PO SCH (09:27)
[2017-11-03] MEDS: OYST-CAL-D 500MG TABLET PO SCH ×2 (09:27→18:00)
[2017-11-03] MEDS: POLYETHYLENE GLYCOL 3350 17 GM PACK PO SCH (09:27)
[2017-11-03] MEDS: LISINOPRIL 20 MG TAB PO SCH (09:27)
[2017-11-03] MEDS: DOCUSATE SODIUM 100 MG CAP PO SCH ×2 (09:27→18:00)
[2017-11-03] MEDS ORDERED: FUROSEMIDE INJ 10 MG/ML 2 ML VIAL IV ONE (09:30)
[2017-11-03] MEDS ORDERED: VANCOMYCIN 1GM/NS 250 ML 250 ML IV SCH (10:30)
[2017-11-03] MEDS: ALBUTEROL/IPRATROPIUM 3 ML NEB NEB SCH ×2 (12:10→19:30)
[2017-11-03] MEDS: VANCOMYCIN 1GM/NS 250 ML 250 ML IV SCH ×2 (12:36→23:00)
[2017-11-04] VITALS (8 sets, daily range): BP systolic 111–137; BP diastolic 53–61
[2017-11-04] MEDS: GUAIFENESIN 600 MG TAB PO SCH ×5 (00:37→23:03)
[2017-11-04 02:50] LABS: BASOPHILS % 0.3 % (0.0-1.0); EOSINOPHILS # (AUTO) 0.2 (0.0-0.4); HEMATOCRIT 34.2 % (34.2-44.1); HEMOGLOBIN 11.1 g/dL (12.0-16.0); LYMPHOCYTES # (AUTO) 1.7 (1.0-3.2); LYMPHOCYTES % 29.5 % (18.0-39.1); MEAN CORPUSCULAR HEMOGLOBIN 29.1 pg (28-32); MEAN CORPUSCULAR HGB CONC 32.5 g/dL (31-35); MEAN CORPUSCULAR VOLUME 89.5 fL (81-99); MONOCYTES # (AUTO) 0.5 (0.2-0.8); MONOCYTES % 8.2 % (4.4-11.3); NEUTROPHILS # (AUTO) 3.4 (2.1-6.9); NEUTROPHILS % 58.7 % (38.7-80.0); PLATELET COUNT 120 x10e3/uL (140-360); RED BLOOD COUNT 3.82 x10e6/uL (3.6-5.1)
[2017-11-04 03:02] LABS: ANION GAP 11.7 mmol/L (8-16); CALCIUM 8.7 mg/dL (8.4-10.2); CREATININE, SERUM 1.21 mg/dL (0.57-1.11); MAGNESIUM 1.8 MG/DL (1.3-2.1); POTASSIUM 3.7 mmol/L (3.5-5.1)
[2017-11-04] MEDS: ALBUTEROL/IPRATROPIUM 3 ML NEB NEB SCH ×4 (07:00→19:00)
[2017-11-04] MEDS ORDERED: MAGNESIUM OXID400 MG PO (08:43)
[2017-11-04] MEDS ORDERED: COLACE100 M1 PO (08:43)
[2017-11-04] MEDS ORDERED: Calcium Carbonate PO (08:43)
[2017-11-04] MEDS ORDERED: RIFAMPIN300 MG PO (08:43)
[2017-11-04] MEDS ORDERED: MUCINEX600 MG PO (08:43)
[2017-11-04] MEDS ORDERED: BACTRIM DS TAB1 EACH PO (08:43)
[2017-11-04] MEDS: DOCUSATE SODIUM 100 MG CAP PO SCH ×2 (09:00→17:09)
[2017-11-04] MEDS: POLYETHYLENE GLYCOL 3350 17 GM PACK PO SCH (09:58)
[2017-11-04] MEDS: OYST-CAL-D 500MG TABLET PO SCH ×2 (09:58→17:09)
[2017-11-04] MEDS: MAGNESIUM OXIDE 400 MG TAB PO SCH ×4 (09:58→21:00)
[2017-11-04] MEDS: ENOXAPARIN SOD INJ 40 MG/0.4 ML SYR SC SCH (09:59)
[2017-11-04] MEDS: LISINOPRIL 20 MG TAB PO SCH (09:59)
[2017-11-04] MEDS: PANTOPRAZOLE SOD 40 MG TABEC PO SCH (09:59)
[2017-11-04] MEDS: VANCOMYCIN 1GM/NS 250 ML 250 ML IV SCH ×2 (10:00→23:00)
[2017-11-05] VITALS: BP 126/70
[2017-11-05 04:00] VITALS: BP 113/52
[2017-11-05] MEDS: GUAIFENESIN 600 MG TAB PO SCH ×2 (05:25→12:47)
[2017-11-05] MEDS: ALBUTEROL/IPRATROPIUM 3 ML NEB NEB SCH ×2 (07:30)
[2017-11-05 07:37] VITALS: BP 136/60
[2017-11-05 07:40] VITALS: BP 136/60
[2017-11-05] MEDS: DOCUSATE SODIUM 100 MG CAP PO SCH (08:49)
[2017-11-05] MEDS: POLYETHYLENE GLYCOL 3350 17 GM PACK PO SCH (08:49)
[2017-11-05] MEDS: PANTOPRAZOLE SOD 40 MG TABEC PO SCH (08:50)
[2017-11-05] MEDS: LISINOPRIL 20 MG TAB PO SCH (08:50)
[2017-11-05] MEDS: OYST-CAL-D 500MG TABLET PO SCH (08:50)
[2017-11-05] MEDS: ENOXAPARIN SOD INJ 40 MG/0.4 ML SYR SC SCH (08:50)
[2017-11-05] MEDS: VANCOMYCIN 1GM/NS 250 ML 250 ML IV SCH (11:00)
[2017-11-05 11:49] VITALS: BP 125/58
--- NOTE | 2017-11-05 18:46 | Discharge Summary ---
ADMITTING DIAGNOSES 1. Failed outpatient urinary tract infection. 2. Hypertension. 3. Gastroesophageal reflux disease. 4. Hypomagnesemia. 5. Dementia. 6. Constipation. 7. Chronic kidney disease, stage 2. 8. Hypocalcemia. 9. Anemia. DISCHARGE DIAGNOSES 1. Failed outpatient urinary tract infection. 2. Hypertension. 3. Gastroesophageal reflux disease. 4. Hypomagnesemia. 5. Dementia. 6. Constipation. 7. Chronic kidney disease, stage 2. 8. Hypocalcemia. 9. Anemia. 10. Methicillin-resistant Staphylococcus aureus urinary tract infection. HISTORY: The patient has a history of dementia, suprapubic catheter, contracted urinary bladder/neurogenic bladder, recurrent UTI, CVA, CKD-2, bladder cancer. Surgical history of suprapubic catheter placement. HOSPITAL COURSE: This 86-year-old female, with history of dementia, complains of shaking and chills that began 2 days ago. She denies fever. She was recently taking Levaquin for UTI. She denies nausea, vomiting, diarrhea. Limited HPI due to dementia. The patient was started on Rocephin and urology consulted. Urine culture was collected, which showed MRSA. The patient was started on IV vancomycin in the hospital and home medications for dementia, hypertension, GERD. The patient on admission had a chest x-ray which showed large soft-tissue density, overlying cardiac shadow in bilateral lower lung su could represent a large hiatal hernia. CT of the chest showed advanced coronary artery disease and large sliding hiatal hernia. Patient also underwent an MBS with physical therapy that showed normal oropharyngeal swallow at bedside. Per speech therapy recommendation, the patient can tolerate mechanical soft chopped diet with thin liquids without aspiration. After talking to the patient's daughter, the patient will discharge home with 2 more weeks of p.o. antibiotics for MRSA of the urine. The daughter does not want SNF placement. The patient does not qualify for home O2. The daughter and patient agree with the discharge plan. She will discharge home today. Dictated by: Elizabeth Dave NP SHERRI TANG MD Job#: [id number]
== END 2017-11-05 13:30 | disposition home or self-care (01) | DRG 699 ==
LOC: ER 19:19 → ERHOLD 22:17 → MED/SURG 22:50 → MED/SURG3 11-01 13:02
PROVIDERS: ADMIT Internal Medicine; ATTEND Internal Medicine
DX: T83.511A Infection and inflammatory reaction due to indwelling urethral catheter, initial encounter (principal); N17.9 Acute kidney failure, unspecified; K21.9 Gastro-esophageal reflux disease without esophagitis; D64.9 Anemia, unspecified; I12.9 Hypertensive chronic kidney disease with stage 1 through stage 4 chronic kidney disease, or unspecified chronic kidney disease; F03.90 Unspecified dementia, unspecified severity, without behavioral disturbance, psychotic disturbance, mood disturbance, and anxiety; E83.51 Hypocalcemia; N18.2 Chronic kidney disease, stage 2 (mild); Z86.73 Personal history of transient ischemic attack (TIA), and cerebral infarction without residual deficits; N31.9 Neuromuscular dysfunction of bladder, unspecified; Z85.51 Personal history of malignant neoplasm of bladder; E83.42 Hypomagnesemia; K59.00 Constipation, unspecified; B95.62 Methicillin resistant Staphylococcus aureus infection as the cause of diseases classified elsewhere
CPT/HCPCS: 36415; 71045; 71250; 80048; 80053; 80061; 80202; 81001; 82550; 82553; 83036; 83735; 83880; 84439; 84443; 84484; 85025; 87086; 87186; 93005; 94640; 97139; 99284; J0610; J0696; J1650; J1940; J3370; J7030

== ENCOUNTER 2017-12-01 22:57 | Observation (INO) | payer MEDICARE, BC ==
[~2017-12-01] VITALS: Ht 144.8 cm; Wt 54.4 kg
[~2017-12-01 22:57] MED LIST changes: +COLACE100 M1 PO; +Calcium Carbonate PO; +LISINOPRIL20 MG PO; +MAGNESIUM OXID400 MG PO; +MUCINEX600 MG PO; +OMEPRAZOLE20 MG PO; +RIFAMPIN300 MG PO
[2017-12-01 23:27] LABS: BASOPHILS % 0.4 % (0.0-1.0); EOSINOPHILS # (AUTO) 0.3 (0.0-0.4); EOSINOPHILS % 3.2 % (0.0-6.0); HEMATOCRIT 32.4 % (34.2-44.1); HEMOGLOBIN 10.1 g/dL (12.0-16.0); LYMPHOCYTES # (AUTO) 4.2 (1.0-3.2); LYMPHOCYTES % 49.7 % (18.0-39.1); MEAN CORPUSCULAR HEMOGLOBIN 28.5 pg (28-32); MEAN CORPUSCULAR HGB CONC 31.2 g/dL (31-35); MEAN CORPUSCULAR VOLUME 91.5 fL (81-99); MONOCYTES # (AUTO) 0.5 (0.2-0.8); MONOCYTES % 5.8 % (4.4-11.3); NEUTROPHILS # (AUTO) 3.4 (2.1-6.9); NEUTROPHILS % 40.5 % (38.7-80.0); PLATELET COUNT 206 x10e3/uL (140-360); RED BLOOD COUNT 3.54 x10e6/uL (3.6-5.1); RED CELL DISTRIBUTION WIDTH 15.8 % (11.7-14.4)
[2017-12-01 23:37] LABS: INR 1.16; PARTIAL THROMBOPLASTIN TIME 31.3 seconds (23.8-35.5); PROTHROMBIN TIME 13.9 seconds (11.9-14.5)
[2017-12-01 23:46] LABS: ALBUMIN 3.1 g/dL (3.5-5.0); ALBUMIN/GLOBULIN RATIO 0.7 (0.8-2.0); ANION GAP 13.8 mmol/L (8-16); CALCIUM 9.3 mg/dL (8.4-10.2); CREATININE, SERUM 1.24 mg/dL (0.57-1.11); POTASSIUM 4.8 mmol/L (3.5-5.1)
[2017-12-02] MEDS ORDERED: SODIUM CHLORIDE 0.9% 1000ML 1,000 ML IV SCH (01:10)
[2017-12-02] MEDS ORDERED: ONDANSETRON HCL INJ 2 MG/ML VIAL IV PRN (01:15)
[2017-12-02] MEDS ORDERED: CLONIDINE HCL 0.1 MG TAB PO ONE (02:30)
--- NOTE | 2017-12-02 12:53 | History and Physical ---
SHORTSTAY SUMMARY CHIEF COMPLAINT: Suprapubic catheter dislodged. HISTORY OF PRESENT ILLNESS: This is an 86-year-old female with past medical history of hypertension and neurogenic bladder requiring a suprapubic catheter in which she comes into the ED after her suprapubic catheter dislodged last night. Patient has not had her suprapubic catheter exchanged in the last 2 months by seeing her urologist, Dr. Ahmadi. Patient reports that she has been very busy with going in and out of snf facilities and had difficulty making her appointments. Patient otherwise doing well with no complaints. Denies any fever, cough, or any kind of cloudy urine at home. Patient seen and evaluated at bedside in the ER, currently doing well with no other complaints. Currently she is waiting for interventional radiology to place a suprapubic catheter under fluoroscopy. REVIEW OF SYSTEMS: Pertinent positive: Suprapubic catheter dislodgement. Pertinent negatives: Denies any chest pain, palpitation, nausea, vomiting, diarrhea, dysuria, hematuria, frequency, urgency, lightheadedness, dizziness, abdominal pain, headache, shortness of breath, fever, cough, congestion, or any other complaints. The rest of the 14-point review of systems have been reviewed with the patient and are negative. ALLERGIES: NO KNOWN DRUG ALLERGIES. HOME MEDICATIONS 1. Lisinopril 20 mg daily. 2. Protonix 20 mg daily. PAST MEDICAL HISTORY: She has suprapubic catheter, neurogenic bladder, has history of hypertension. SURGICAL HISTORY: She has suprapubic catheter placement in the past and current. FAMILY HISTORY: Hypertension, diabetes. SOCIAL HISTORY: Denies drugs, alcohol. Does not smoke. Lives with family. Good social support. Daughter was at bedside. VITAL SIGNS: Temperature is 97.9, pulse is 62, respiratory rate is 18, blood pressure 160/80, pulse ox 95% on room air. LABORATORY DATA: Lab findings show white count 8.4, hemoglobin 10, hematocrit is 32, platelets of 206. Coagulations PT 13, INR 1.1, PTT 31. Chemistry: Sodium 139, potassium 4.8, chloride 104, bicarb 26, anion gap of 13, BUN is 20, creatinine 1.2, glucose is 112, calcium 9.3, total bilirubin 0.3, AST 18, ALT 21, total protein 7.8, albumin is 3.1. MICROBIOLOGY: None. IMAGING STUDIES: None. PHYSICAL EXAM GENERAL: Not in acute distress. Alert, oriented times 3. Cooperative on exam. HEENT: Head normocephalic, atraumatic. Eyes: Pupils are equal and reactive to light bilaterally. Extraocular movements are intact bilaterally. No evidence of erythema or exudates in the posterior pharynx. Has poor dentition. NECK: Supple. Good range of motion throughout. PULMONARY: Clear to auscultation bilaterally. No wheezing, no rales, no rhonchi, no crackles appreciated. CARDIOVASCULAR: Positive S1, S2. No murmurs, rubs, or gallops appreciated. ABDOMEN: Soft, nondistended, nontender to palpation. Bowel sounds present. MUSCULOSKELETAL: Strength is 5/5 throughout. No evidence of any muscle deficit on examination. No weakness appreciated. NEUROLOGIC: Cranial nerves II through XII grossly intact. No evidence of any neurologic deficit on exam. SKIN: Intact. Warm to touch. Good cap refill. PSYCHIATRIC: Normal affect and mood. EXTREMITIES: No edema. Good range of motion throughout. IMPRESSIONS 1. Dislodged suprapubic urinary catheter. 2. History of neurogenic bladder. 3. History of cerebrovascular accident in the past. 4. Chronic kidney disease, stage 2. PLANS: At this time, urology has been consulted. Due to the fact that the patient has had difficulty inserting her suprapubic catheter, in the past she has had interventional radiology insert it under fluoroscopy. Patient is scheduled for fluoroscopy by interventional radiology. Catheter was placed and will be discharged to home. There is no further workup needed at this time. Patient has been cleared by urology for discharge home. Suprapubic catheter has been placed by interventional radiology under fluoroscopy. Otherwise, this will serve as a history of physical and discharge summary combined. Patient was admitted and discharged on the same day. Job#: [id number] CAROL
[2017-12-02] MEDS ORDERED: LIDOCAINE HCL 2% LOCAL 20 ML VIAL ONE (13:36)
[2017-12-02] MEDS ORDERED: SODIUM CHLORIDE 0.9% 500ML 500 ML ONE (13:37)
[2017-12-02] MEDS ORDERED: IOPAMIDOL 370 MG/ML 200 ML INFUS..BTL INJ ONE (13:37)
[2017-12-02] MEDS ORDERED: FENTANYL CITRATE/PF 100MCG/2 ML INJ ONE (14:02)
[2017-12-02 15:00] VITALS: BP 158/84
[2017-12-02 15:15] VITALS: BP 147/82
[2017-12-03] MEDS ORDERED: PANTOPRAZOLE SOD 40 MG TABEC PO SCH (07:30)
[2017-12-03] MEDS ORDERED: LISINOPRIL 20 MG TAB PO SCH (09:00)
--- NOTE | 2017-12-08 08:01 | Diagnostic Imaging Report ---
Fluoroscopic suprapubic catheter rescue. Pre-Procedure Diagnosis: Suprapubic catheter had come out. Post-procedure Diagnosis: Same Gas Engine Performance Engineer: Nazia Brandon MD Mangle Operator Garments: None Sedation: None. Radiation Dose:134.7 cGycm2 (Dose Area Product) Fluoroscopy time: 3 minutes Estimate blood loss: None Complications: None Procedure: Informed consent was obtained and the patient positioned supine in the fluoroscopy suite. A timeout was performed. Suprapubic catheter had previously fallen out. The surrounding skin was noted to be erythematous. The area was prepped and draped in sterile fashion. A Kumpe catheter was advanced into the bladder. Injection of 5 cc of contrast demonstrated that the urinary bladder is tiny and non-distensible. There is free reflux of contrast up both ureters. With minimal distension of the bladder, there is free passage of contrast through the urethra. Amplatz wire initially and subsequently Hutson wire was used to secure access. We attempted to place a 16 Fr Ireland through the tract, but it would not track. We then sequentially dilated the tract with 12 and 14 Fr dilators. We attempted to track the 16 Fr [place] but could not advance the catheter through the tract. Subsequently, we attempted to place a 14 Fr MP catheter over the wire into the bladder, however the pigtail was too large to form in the non-distended bladder. We then placed a urethral Ireland catheter and inflated the balloon. Approximately 50 cc of saline was injected into the bladder. The 14 Fr MP catheter still would not form the pigtail, so the catheter was removed. After discussion with Urology attending who was present, decision was made to place a smaller catheter. An 8Fr DM catheter was advanced over the wire into the bladder and pigtail was locked. Contrast injection confirmed satisfactory positioning. The urethral [place] catheter was subsequently removed. At the end of the procedure the catheter was secured with suture and Statlock bandage and a sterile dressing applied. The patient tolerated the procedure well and without immediate complication. Impression: Suprapubic catheter rescue as above. Very small bladder could not be distended, therefore a smaller catheter (8 Fr DM) was placed. Plan: Follow-up with Urology team. Catheter can be exchanged as needed, or every 3 months with fluoroscopic guidance. Signed by: Dr. Nazia Brandon MD on 12/02/2017 4:05 PM
--- OUTSIDE RECORDS SUMMARY | 2018-02-08 21:42 | XMS REPORT | Continuity of Care Document ---
Author Author [facility] Organization [facility] Address [address] [place] [address] Phone Unavailable Care Team Providers Care Assistant Service Manager Name Role Phone NONSTAFF PCP Unavailable Insurance Providers Guarantor Gabriela Campbell Address [address] [place] [address] Payer [facility] Policy Number [id number] Subscriber's Name Gabriela Campbell Relationship 18 Self / Same As Patient Group Number [id number] Group Name RETIRED Effective Date 00 Payer Medicare A & B Policy Number [id number] Subscriber's Name Gabriela Campbell Relationship 18 Self / Same As Patient Group Number [id number] Group Name RETIRED Effective Date 95 Advance Directives Directive Response Recorded Date/Time Does the patient have an advance directive? No 10/31/17 11:15pm If yes, is advance directive on file with [facility]? No 10/31/17 11:15pm If not on file with [facility] will patient provide a copy? Yes 10/31/17 11:15pm Do you have a Directive to Physician? No 10/31/17 9:02pm Do you have a Medical Power of Photogrammetrist? No 10/31/17 9:02pm Do you have an out of hospital Do Not Resuscitate Order? No 10/31/17 9:02pm Do you have any special needs we should be aware of? No 10/31/17 9:02pm Do you have a support person here with you today? Yes 10/31/17 9:02pm Did patient receive Notice of Privacy Practices? Yes 10/31/17 9:02pm Did patient receive patient rights and responsibilities? Yes 10/31/17 9:02pm Problems Medical Problem Onset Date Status Diarrhea 03/15/2014 Acute Dislodged [place] catheter Unknown Acute Failure of outpatient treatment Unknown [place] catheter in place prior to arrival Unknown Laceration Unknown Acute Skin tear Unknown Acute Suprapubic catheter dysfunction Unknown Acute UTI (lower urinary tract infection) 03/15/2014 Acute Urinary tract infection Unknown Acute Medications Current Home Medications Medication Dose Units Route Directions Days Qty Instructions Start Date Calcium Carbonate 500 Tab 500 Mg Oral Twice A Day 30 Days 11/04/17 Docusate Sodium (Colace) 100 Mg Capsule 100 Mg Oral Twice A Day 30 Days 11/04/17 Guaifenesin (Mucinex) 600 Mg Tablet.er 600 Mg Oral Every 6 Hours 30 11/04/17 Lisinopril (Prinavil / Zestril) 20 Mg Tablet 20 Mg Oral Daily 90 Magnesium Oxide 400 Mg Tablet 400 Mg Oral Twice A Day 30 Days 11/04 Omeprazole 20 Mg Capsule.dr 20 Mg Oral Daily 90 Rifampin 300 Mg Capsule 300 Mg Oral Twice A Day 14 Days 11/04/17 Sulfamethoxazole/Trimethoprim (Bactrim Ds Tablet) 1 Each Tablet 1 Each Oral Twice A Day 14 Days 11/04/17 Past Home Medications Medication Directions Ordered Status [...] Date/Time Onset Date Status Hx Psychiatric Problems No 10/31/2017 11:15pm Not Applicable Not Applicable Hx Eating Disorder No 10/31/2017 11:15pm Not Applicable Not Applicable Hx Substance Use Disorder No 10/31/2017 11:15pm Not Applicable Not Applicable Hx Depression No 10/31/2017 11:15pm Not Applicable Not Applicable Hx Alcohol Use No 10/31/2017 11:15pm Not Applicable Not Applicable Hx Substance Use Treatment No 10/31/2017 11:15pm Not Applicable Not Applicable Hx Physical Abuse No 10/31/2017 11:15pm Not Applicable Not Applicable Smoking Status Start Date Stop Date Never Smoker Hospital Discharge Instructions No hospital discharge instruction information available. Plan of Care Discharge Date 11/05/17 1:30pm Disposition HOME, SELF-CARE Instructions/Education Provided Urinary Tract Infection - Women Prescriptions See Medication Section Referrals CLYDE PATTON MD (Urology) Order Date: 2 Weeks Entered Date: 11/04/2017 8:43am Address: [address] [place] [id number] Functional Status Query Response Date Recorded FUNCTIONAL STATUS . November 01, 2017 6:04pm Assistive Devices Standard Walker October 31, 2017 11:18pm Ambulation Ability Maximum Assistance October 31, 2017 11:18pm Toileting Ability Moderate Assistance November 05, 2017 9:09am Allergies, Adverse Reactions, Alerts No known allergies. Immunizations No immunization information available. Vital Signs Acute Vital Signs Vital Response Date/Time Temperature (Fahrenheit) 96.1 degrees F (97.6 - 99.5) 11/05/2017 11:49am Pulse Pulse Rate (adult) 77 bpm (60 - 90) 11/05/2017 11:49am Respiratory Rate 20 bpm (12 - 24) 11/05/2017 11:49am Blood Pressure 125/58 mm Hg 11/05/2017 11:49am Height 4 ft 9 in 10/31/2017 11:15pm Weight 120 lb 10/31/2017 7:23pm Body Mass Index 26.0 kg/m^2 10/31/2017 11:15pm Results Laboratory Results Test Name Result Units Flags Reference Collection Date/Time Result Date/ Time Comments Urine Mucus FEW H RARE 07/21/2017 11:00am 07/21/2017 11:38am Prothrombin Time 14.5 seconds 11.9-14.5 08/24/2017 9:20pm 08/24/2017 9: 46pm Prothromb Time International Ratio 1.22 08/24/2017 9:20pm 2017 9:46pm Oral Anticoagulant Therapy INR Values: 1. Low Intensity Therapy 1.5 - 2.0 2. Moderate Intensity Therapy 2.0 - 3.0 3. High Intensity Therapy(1) 2.5 - 3.5 4. High Intensity Therapy(2) 3.0 - 4.0 5. Panic Value INR > 5.0 Activated Partial Thromboplast Time 28.4 seconds 23.8-35.5 08/24/2017 9: 20pm 08/24/2017 9:46pm White Blood Count 5.72 x10e3/uL 4.8-10.8 11/04/2017 2:30am 11/04/2017 3 :54am Red Blood Count 3.82 x10e6/uL 3.6-5.1 11/04/2017 2:30am 11/04/2017 3: 54am Hemoglobin 11.1 g/dL L 12.0-16.0 11/04/2017 2:3011/04/2017 3:54am Hematocrit 34.2 % 34.2-44.1 11/04/2017 2:3011/04/2017 3:54am Mean Corpuscular Volume 89.5 fL 81-99 11/04/2017 2:30am 11/04/2017 3: 54am Mean Corpuscular Hemoglobin 29.1 pg 28-32 11/04/2017 2:30am 11/04/2017 3:54am Mean Corpuscular Hemoglobin Concent 32.5 g/dL 31-35 11/04/2017 2:3011/04/2017 3:54am Red Cell Distribution Width 15.0 % H 11.7-14.4 11/04/2017 2:2017 3:54am Platelet Count 120 x10e3/uL L 140-360 11/04/2017 2:11/04/2017 3: 54am Neutrophils (%) (Auto) 58.7 % 38.7-80.0 11/04/2017 2:11/04/2017 3: 54am Lymphocytes (%) (Auto) 29.5 % 18.0-39.1 11/04/2017 2:11/04/2017 3: 54am Monocytes (%) (Auto) 8.2 % 4.4-11.3 11/04/2017 2:11/04/2017 3: 54am Eosinophils (%) (Auto) 3.0 % 0.0-6.0 11/04/2017 2:11/04/2017 3: 54am Basophils (%) (Auto) 0.3 % 0.0-1.0 11/04/2017 2:11/04/2017 3:54am IM GRANULOCYTES % 0.3 % 0.0-1.0 11/04/2017 2:11/04/2017 3:54am Neutrophils # (Auto) 3.4 2.1-6.9 11/04/2017 2:11/04/2017 3:54am Lymphocytes # (Auto) 1.7 1.0-3.2 11/04/2017 2:11/04/2017 3:54am Monocytes # (Auto) 0.5 0.2-0.8 11/04/2017 2:11/04/2017 3:54am Eosinophils # (Auto) 0.2 0.0-0.4 11/04/2017 2:11/04/2017 3:54am Basophils # (Auto) 0.0 0.0-0.1 11/04/2017 2:11/04/2017 3:54am Absolute Immature Granulocyte (auto 0.02 x10e3/uL 0-0.1 11/04/2017 2: 11/04/2017 3:54am Urine Color YELLOW YELLOW 10/31/2017 7:30pm 10/31/2017 7:52pm Urine Clarity TURBID H CLEAR 10/31/2017 7:30pm 10/31/2017 7:52pm Urine Specific [place] 1.030 H 1.010-1.025 10/31/2017 7:30pm 2017 7:52pm Urine pH 6 5 - 7 10/31/2017 7:30pm 10/31/2017 7:52pm Urine Leukocyte Esterase 2+ H NEGATIVE 10/31/2017 7:30pm 10/31/2017 7: 52pm Urine Nitrite POSITIVE H NEGATIVE 10/31/2017 7:30pm 10/31/2017 7:52pm Urine Protein 2+ H NEGATIVE 10/31/2017 7:30pm 10/31/2017 7:52pm Urine Glucose (UA) NEGATIVE NEGATIVE 10/31/2017 7:30pm 10/31/2017 7: 52pm Urine Ketones NEGATIVE NEGATIVE 10/31/2017 7:30pm 10/31/2017 7:52pm Urine Urobilinogen 0.2 mg/dL 0.2 - 1 10/31/2017 7:30pm 10/31/2017 7: 52pm Urine Bilirubin NEGATIVE NEGATIVE 10/31/2017 7:30pm 10/31/2017 7: 52pm Urine Blood 4+ H NEGATIVE 10/31/2017 7:30pm 10/31/2017 7:52pm Urine WBC 21-50 /HPF H 0-5 10/31/2017 7:30pm 10/31/2017 8:04pm Urine RBC 21-50 /HPF H 0-5 10/31/2017 7:30pm 10/31/2017 8:04pm Urine Bacteria MANY /HPF H NONE 10/31/2017 7:30pm 10/31/2017 8:04pm Urine Epithelial Cells NONE /LPF NONE 10/31/2017 7:30pm 10/31/2017 8: 04pm Urine White Blood Cell Casts 1-5 H 0 10/31/2017 7:30pm 10/31/2017 8: 04pm Sodium Level 139 mmol/L 136-145 11/04/2017 2:30am 11/04/2017 3:56am Potassium Level 3.7 mmol/L 3.5-5.1 11/04/2017 2:30am 11/04/2017 3:56am Chloride Level 102 mmol/L 98-107 11/04/2017 2:30am 11/04/2017 3:56am Carbon Dioxide Level 29 mmol/L 22-29 11/04/2017 2:3011/04/2017 3: 56am Anion Gap 11.7 mmol/L 8-16 11/04/2017 2:3011/04/2017 3:56am Blood Urea Nitrogen 28 mg/dL H 7-11/04/2017 2:3011/04/2017 3:56am Creatinine 1.21 mg/dL H 0.57-1.11 11/04/2017 2:3011/04/2017 3:56am BUN/Creatinine Ratio 23 6-11/04/2017 2:3011/04/2017 3:56am Estimat Glomerular Filtration Rate 42 ML/MIN L 60- 11/04/2017 2:30 3:56am Ranges were taken from the National Kidney Disease Education Program and the National Kidney Foundation literature. Reference ranges: 60 or greater: Normal 16-59 (for 3 consecutive months): Chronic kidney disease 15 or less: Kidney failure Glucose Level 138 mg/dL H 74-118 11/04/2017 2:11/04/2017 3:56am Calcium Level 8.7 mg/dL 8.4-10.2 11/04/2017 2:3011/04/2017 3:56am Hemoglobin A1c Percent 5.8 % 4.0-7.0 11/01/2017 5:0811/01/2017 5: 35am Magnesium Level 1.8 MG/DL 1.3-2.1 11/04/2017 2:3011/04/2017 3:56am Total Bilirubin 0.5 mg/dL 0.2-1.2 11/01/2017 5:0811/01/2017 5:45am Aspartate Amino Transf (AST/SGOT) 7 IU/L 5-34 11/01/2017 5:082017 5:45am Alanine Aminotransferase (ALT/SGPT) < 6 IU/L 0-55 11/01/2017 5:08 5:45am Total Protein 6.1 g/dL # L 6.5-8.1 11/01/2017 5:0811/01/2017 5:45am Albumin 2.5 g/dL L 3.5-5.0 11/01/2017 5:08am 11/01/2017 5:45am Globulin 3.6 g/dL H 2.3-3.5 11/01/2017 5:08am 11/01/2017 5:45am Albumin/Globulin Ratio 0.7 L 0.8-2.0 11/01/2017 5:08am 11/01/2017 5: 45am Alkaline Phosphatase 61 IU/L 40-150 11/01/2017 5:08am 11/01/2017 5: 45am Triglycerides Level 75 MG/DL 0-149 11/01/2017 5:08am 11/01/2017 5:49am Cholesterol Level 102 MD/DL 0-199 11/01/2017 5:08am 11/01/2017 5:49am Less than 200 mg/dL Low Risk 201 - 239 mg/dL Borderline Risk 240 mg/dl and greater High Risk LDL Cholesterol 61 MG/DL 60-130 11/01/2017 5:08am 11/01/2017 5:49am HDL Cholesterol 26 MG/DL L 40-60 11/01/2017 5:08am 11/01/2017 5:49am Cholesterol/HDL Ratio 3.9 H 3.0-3.6 11/01/2017 5:08am 11/01/2017 5: 49am B-Type Natriuretic Peptide 111.2 pg/mL H 0-100 11/04/2017 2:30am 2017 3:56am Creatine Kinase 17 IU/L L 29-168 10/31/2017 7:30pm 10/31/2017 8:04pm Creatine Kinase MB 0.60 ng/mL 0-5.0 10/31/2017 7:30pm 10/31/2017 8: 13pm Troponin I < 0.001 ng/mL 0-0.300 10/31/2017 7:30pm 10/31/2017 8:13pm Free Thyroxine 0.89 ng/dL L 0.9-1.8 11/01/2017 5:0811/01/2017 6:09am Thyroid Stimulating Hormone (TSH) 1.887 uIU/mL 0.350-4.940 11/01/2017 5: 0811/01/2017 6:09am Vancomycin Level Trough 22.6 ug/mL *H 5.0-10.0 11/05/2017 11:45am 2017 12:35pm Results called to MEAGAN CHINO RN at 1234 on 11/05/17 by Barbara Pepe. RB OK. Microbiology Results Procedure Source Organism/Result Collection Date/Time Result Date/Time Result Status Urine Culture Urine,[place] STAPHYLOCOCCUS AUREUS-MRSA 10/31/2017 7: 30pm 11/03/2017 9:42am Final Procedures Procedure Status Date Provider(s) CHANGE OF BLADDER TUBE Completed 01/20/17 CANDY FRAGOSO MD CHANGE OF BLADDER TUBE Completed 07/21/17 JESSICA COLÓN NEEDLE LOCALIZATION BY XRAY Completed 08/24/17 ANGA MCDONALD MD Computed tomography of chest without contrast Active 10/31/17 LORRAINE WALSH MD Encounters Encounter Location Arrival/Admit Date Discharge/Depart Date Attending Provider Discharged Inpatient [facility] 10/31/17 10:17pm 1:30pm SHERRI TANG MD Discharged Inpatient (obs) [facility] 08/24/17 10:09pm 7:31pm NAGA BLUM MD Departed Emergency Room [facility] 08/18/17 7:18pm 8:33pm BHUMI ARANGO MD Departed Emergency Room [facility] 07/21/17 10:14am 07/21 11:42am JESSICA COLÓN Departed Emergency Room [facility] 01/20/17 7:31am 9:59am CANDY FRAGOSO MD
== END 2017-12-02 13:05 | disposition home or self-care (01) ==
LOC: ER 22:57 → ERHOLD 12-02 01:13 → UNDOADMOB 12-02 01:14 → ERHOLD 12-02 01:14 → ER 12-02 13:05
PROVIDERS: ADMIT Internal Medicine; ATTEND Internal Medicine
DX: T83.020A Displacement of cystostomy catheter, initial encounter (principal); Z85.42 Personal history of malignant neoplasm of other parts of uterus; Z82.49 Family history of ischemic heart disease and other diseases of the circulatory system; N31.9 Neuromuscular dysfunction of bladder, unspecified; Z86.73 Personal history of transient ischemic attack (TIA), and cerebral infarction without residual deficits; D64.9 Anemia, unspecified; Z87.440 Personal history of urinary (tract) infections; I12.9 Hypertensive chronic kidney disease with stage 1 through stage 4 chronic kidney disease, or unspecified chronic kidney disease; N18.2 Chronic kidney disease, stage 2 (mild)
CPT/HCPCS: 36415; 51710; 80053; 85025; 85610; 85730; C1769 ×2; C1892; G0378

== ENCOUNTER 2017-12-26 16:56 | Inpatient (IN) | payer MEDICARE, BC ==
[~2017-12-26] VITALS: Ht 144.8 cm; Wt 62.6 kg
[2017-12-26] MEDS ORDERED: IBUPROFEN 600 MG TAB PO STA (17:15)
[2017-12-26 17:47] LABS: BASOPHILS % 0.3 % (0.0-1.0); EOSINOPHILS % 0.1 % (0.0-6.0); HEMOGLOBIN 11.5 g/dL (12.0-16.0); LYMPHOCYTES # (AUTO) 3.3 (1.0-3.2); LYMPHOCYTES % 21.3 % (18.0-39.1); MEAN CORPUSCULAR HEMOGLOBIN 29.7 pg (28-32); MEAN CORPUSCULAR HGB CONC 31.9 g/dL (31-35); MONOCYTES % 6.6 % (4.4-11.3); NEUTROPHILS # (AUTO) 11.1 (2.1-6.9); NEUTROPHILS % 71.3 % (38.7-80.0); PLATELET COUNT 251 x10e3/uL (140-360); RED BLOOD COUNT 3.87 x10e6/uL (3.6-5.1); RED CELL DISTRIBUTION WIDTH 16.3 % (11.7-14.4)
[2017-12-26 18:02] LABS: ALBUMIN 3.1 g/dL (3.5-5.0); ALBUMIN/GLOBULIN RATIO 0.6 (0.8-2.0); CREATININE, SERUM 1.27 mg/dL (0.57-1.11)
[2017-12-26 18:21] LABS: ANION GAP 15.6 mmol/L (8-16); POTASSIUM 4.6 mmol/L (3.5-5.1)
[2017-12-26 19:20] LABS: COLOR,URINE RED (YELLOW)
[2017-12-26 19:21] LABS: BILIRUBIN,URINE 1+ (NEGATIVE); CLARITY,URINE SL CLOUDY (CLEAR); KETONES,URINE NEGATIVE (NEGATIVE); LEUKOCYTE ESTERASE ,URINE 2+ (NEGATIVE); NITRITE,URINE POSITIVE (NEGATIVE); PROTEIN,URINE DIPSTICK 2+ (NEGATIVE); URINE UROBILINOGEN 1 mg/dL (0.2 - 1)
[2017-12-26 19:33] LABS: BACTERIA,URINE MANY /HPF; WBC,URINE (MAN) 0-5 /HPF (0-5)
[2017-12-26 19:34] LABS: AMORPHOUS SEDIMENT,URINE FEW (FEW)
[2017-12-26] MEDS ORDERED: CEFTRIAXONE SOD 1 GM VIAL IM STA (19:39)
[2017-12-26] MEDS: CEFTRIAXONE SOD 1 GM VIAL IV SCH (20:15)
[2017-12-26] MEDS ORDERED: VANCOMYCIN 1GM/NS 250 ML 250 ML IV STA (22:11)
[2017-12-26] MEDS ORDERED: MORPHINE SULFATE 2 MG/ML SYR IV PRN (22:30)
[2017-12-26] MEDS ORDERED: ONDANSETRON HCL INJ 2 MG/ML VIAL IV PRN (22:30)
--- NOTE | 2017-12-26 23:03 | Diagnostic Imaging Report ---
EXAMINATION: PA and lateral views of the chest. COMPARISON: CT chest 10/31/2017 CLINICAL HISTORY: High fever, sepsis DISCUSSION: Lines/tubes: None. Lungs: The lungs are well inflated and grossly clear. There is no evidence of consolidation or pulmonary edema. Pleura: There is no pleural effusion or pneumothorax. Heart and mediastinum: Cardiomediastinal silhouette is unremarkable. Pulmonary vasculature is normal. Large hiatal hernia. Bones and soft tissues: No acute bony abnormalities. Degenerative changes in the thoracic spine IMPRESSION: No acute cardiopulmonary abnormalities. Large hiatal hernia Preliminary report provided by Dr. Garay 12/26/2017 at 1810 hours Signed by: Dr. See Garrison M.D. on 12/26/2017 11:00 PM
[2017-12-26 23:25] VITALS: BP 98/59
[2017-12-27] VITALS (10 sets, daily range): BP systolic 113–135; BP diastolic 51–60
[2017-12-27] MEDS: SODIUM CHLORIDE 0.9% 1000ML 1,000 ML IV SCH ×2 (00:35→12:50)
[2017-12-27 05:35] LABS: BASOPHILS % 0.4 % (0.0-1.0); EOSINOPHILS # (AUTO) 0.1 (0.0-0.4); EOSINOPHILS % 1.2 % (0.0-6.0); HEMATOCRIT 34.6 % (34.2-44.1); HEMOGLOBIN 10.7 g/dL (12.0-16.0); LYMPHOCYTES # (AUTO) 1.7 (1.0-3.2); LYMPHOCYTES % 21.3 % (18.0-39.1); MEAN CORPUSCULAR HEMOGLOBIN 29.6 pg (28-32); MEAN CORPUSCULAR HGB CONC 30.9 g/dL (31-35); MEAN CORPUSCULAR VOLUME 95.8 fL (81-99); MONOCYTES # (AUTO) 0.6 (0.2-0.8); MONOCYTES % 6.8 % (4.4-11.3); NEUTROPHILS # (AUTO) 5.7 (2.1-6.9); NEUTROPHILS % 69.8 % (38.7-80.0); PLATELET COUNT 138 x10e3/uL (140-360); RED BLOOD COUNT 3.61 x10e6/uL (3.6-5.1); RED CELL DISTRIBUTION WIDTH 15.9 % (11.7-14.4)
[2017-12-27 06:12] LABS: ALBUMIN 2.6 g/dL (3.5-5.0); ALBUMIN/GLOBULIN RATIO 0.6 (0.8-2.0); ANION GAP 13.9 mmol/L (8-16); CALCIUM 8.6 mg/dL (8.4-10.2); CREATININE, SERUM 1.34 mg/dL (0.57-1.11); POTASSIUM 4.9 mmol/L (3.5-5.1)
[2017-12-27] MEDS: CEFTRIAXONE SOD 1 GM VIAL IV SCH ×2 (08:13→20:42)
--- NOTE | 2017-12-27 16:04 | Consultation ---
DATE OF CONSULTATION: December 27, 2017 UROLOGY CONSULTATION ATTENDING PHYSICIAN: Dr. Adam Joy. HISTORY OF PRESENT ILLNESS: This is a patient, an 87-year-old female which is well known to me for a long time. She does have a chronic suprapubic tube in place. The suprapubic was displaced, and she presented to the ER several days ago and suprapubic catheter which is just 8 Turkish was placed by Interventional Radiology. There is persistent leakage from below as well as around the catheter. The patient was admitted with the diagnosis of possible UTI. PAST MEDICAL HISTORY: Significant for 1. Contracted bladder. 2. History of urinary incontinence. 3. History of perforated bladder and pelvic abscess. She is being treated for quite some time with change of the suprapubic tube in the office every 3 to 4 weeks. PAST SURGICAL HISTORY: Significant for 1. Hypertension. 2. CVA. 3. Gastroesophageal reflux. 4. Bladder perforation. 5. Uterine cancer. FAMILY HISTORY: Noncontributory. ALLERGIES TO MEDICATIONS: SEE MAR. NO KNOWN ALLERGY. PHYSICAL EXAMINATION: GENERAL: Patient is alert and oriented times 3. VITALS: Blood pressure 120/90, pulse 92, respiration 20, temperature now 99. HEAD: Symmetric. EYES: Normal movement. NECK: No JVD or masses. CHEST: Clear. HEART: Regular. ABDOMEN: Soft. Suprapubic site, a small catheter in, leaking around it and some irritation of the skin. PELVIC: Atrophic vaginitis. LOWER EXTREMITIES: Moves all. LABORATORY DATA: Hemoglobin 10.7, white count 8.14. Sodium 133, potassium 4.6, chloride 100, bicarb 22, creatinine 1.27, BUN 30. Urinalysis: 6 to 10 red blood cells and 0 to 5 white blood cells per high power field. IMPRESSION: 1. Malfunction of suprapubic tube. 2. Contracted bladder. 3. Urine incontinence. 4. History of cerebrovascular accident. 5. History of uterine cancer. 6. Incontinence and leaking around the suprapubic tube. PLAN: Will change the SP tube in the OR for a larger catheter. At same time will assess the bladder with cystoscopy and possible retrograde. Job#: [id number] EV
[2017-12-27] MEDS: FAMOTIDINE 20 MG TAB PO SCH (16:11)
[2017-12-28] VITALS (7 sets, daily range): BP systolic 126–156; BP diastolic 58–70
[2017-12-28] MEDS: SODIUM CHLORIDE 0.9% 1000ML 1,000 ML IV SCH ×2 (02:05→15:33)
[2017-12-28] MEDS: FAMOTIDINE 20 MG TAB PO SCH ×2 (07:30→15:33)
[2017-12-28] MEDS: NYSTATIN 15 GM POWDER UD BTL TOP SCH (08:55)
[2017-12-28] MEDS: CEFTRIAXONE SOD 1 GM VIAL IV SCH ×2 (08:55→20:22)
[2017-12-28] MEDS ORDERED: IOPAMIDOL 300MG/ML 50ML INFUS..BTL IV ONE (12:13)
[2017-12-28] MEDS ORDERED: FENTANYL CITRATE/PF 100MCG/2 ML INJ ONE ×2 (13:07→17:42)
[2017-12-28] MEDS ORDERED: PROPOFOL IV EMULSION 10 MG/ML 20 ML VIAL ONE (17:00)
[2017-12-28] MEDS ORDERED: ONDANSETRON HCL INJ 2 MG/ML VIAL ONE (17:00)
[2017-12-28] MEDS ORDERED: DEXAMETHASONE SOD PHOS INJ 4 MG/ML VIAL ONE (17:00)
[2017-12-28] MEDS ORDERED: SEVOFLURANE INHAL SOLN 250 ML PEN BTL ONE (17:00)
[2017-12-28] MEDS ORDERED: LIDOCAINE HCL 2% LOCAL INJ 5 ML SDV VIAL INJ ONE (17:00)
[2017-12-28] MEDS: BALSAM PERU/CASTOR OIL 60 GM OINT...G. TP SCH (20:24)
--- NOTE | 2017-12-28 21:36 | Operative Report ---
DATE OF PROCEDURE: December 28, 2017 SERVICE: Urology. PREOPERATIVE DIAGNOSES 1. Displaced malfunction suprapubic tube. 2. Contracted bladder. 3. Urinary tract infection. 4. Bilateral vesicoureteral reflux. POSTOPERATIVE DIAGNOSES 1. Displaced malfunction suprapubic tube. 2. Contracted bladder. 3. Urinary tract infection. 4. Bilateral vesicoureteral reflux. OPERATIONS PERFORMED 1. Cystogram under fluoroscopic control. 2. Cystourethroscopy. 3. Placement of a new suprapubic tube 16-Belizean. GLASS GLAZIER: None. ANESTHESIA: General. CLINICAL INDICATION NOTE: This is an 87-year-old patient, which is almost completely contracted bladder. She has been treated in the past with a suprapubic tube with on and off displacement and pulling it out. Patient presently has a small 8-Belizean nephrostomy that was placed by interventional radiology, is not functioning well. Patient was brought for placement of cystostomy tube and assessment again of the lower urinary tract. Procedure was discussed, explained to the family and patient and accepted. DESCRIPTION OF PROCEDURE AND FINDINGS: After proper level of anesthesia was achieved, a cystogram was done demonstrating practically almost no capacity bladder and bilateral vesicoureteral reflux. Following this, a guidewire was guided down into the bladder. This was verified by cystoscopy and it was pulled down. Short stab incision was made in the suprapubic area. The tract was gradually dilated and a new cystostomy tube, 16-Belizean with the 3 mL in the balloon was placed, was irrigated and functioning well. Patient tolerated the procedure well, was transferred in satisfactory condition to recovery room. Job#: [id number] CQ
[2017-12-29] VITALS (8 sets, daily range): BP systolic 135–154; BP diastolic 60–67
[2017-12-29] MEDS: SODIUM CHLORIDE 0.9% 1000ML 1,000 ML IV SCH ×2 (03:43→11:50)
[2017-12-29 05:52] LABS: BASOPHILS % 0.3 % (0.0-1.0); EOSINOPHILS # (AUTO) 0.2 (0.0-0.4); EOSINOPHILS % 2.9 % (0.0-6.0); HEMATOCRIT 30.9 % (34.2-44.1); HEMOGLOBIN 9.4 g/dL (12.0-16.0); LYMPHOCYTES % 28.5 % (18.0-39.1); MEAN CORPUSCULAR HEMOGLOBIN 29.3 pg (28-32); MEAN CORPUSCULAR HGB CONC 30.4 g/dL (31-35); MEAN CORPUSCULAR VOLUME 96.3 fL (81-99); MONOCYTES # (AUTO) 0.6 (0.2-0.8); MONOCYTES % 8.9 % (4.4-11.3); NEUTROPHILS # (AUTO) 4.1 (2.1-6.9); NEUTROPHILS % 59.1 % (38.7-80.0); PLATELET COUNT 171 x10e3/uL (140-360); RED BLOOD COUNT 3.21 x10e6/uL (3.6-5.1); RED CELL DISTRIBUTION WIDTH 15.8 % (11.7-14.4)
[2017-12-29 06:22] LABS: ANION GAP 10.1 mmol/L (8-16); CALCIUM 7.7 mg/dL (8.4-10.2); CREATININE, SERUM 1.03 mg/dL (0.57-1.11); MAGNESIUM 1.3 MG/DL (1.3-2.1); POTASSIUM 4.1 mmol/L (3.5-5.1)
[2017-12-29] MEDS: NYSTATIN 15 GM POWDER UD BTL TOP SCH (07:26)
[2017-12-29] MEDS: FAMOTIDINE 20 MG TAB PO SCH ×2 (07:26→18:05)
[2017-12-29] MEDS: CEFTRIAXONE SOD 1 GM VIAL IV SCH ×2 (07:26→21:24)
[2017-12-29] MEDS: BALSAM PERU/CASTOR OIL 60 GM OINT...G. TP SCH ×2 (07:26→21:24)
[2017-12-29] MEDS: OYST-CAL-D 500MG TABLET PO SCH (18:05)
[2017-12-30] VITALS: BP 124/58
[2017-12-30 04:00] VITALS: BP 152/69
[2017-12-30 06:05] LABS: BASOPHILS % 0.3 % (0.0-1.0); EOSINOPHILS # (AUTO) 0.2 (0.0-0.4); HEMATOCRIT 31.9 % (34.2-44.1); HEMOGLOBIN 9.7 g/dL (12.0-16.0); LYMPHOCYTES # (AUTO) 2.4 (1.0-3.2); MEAN CORPUSCULAR HEMOGLOBIN 29.1 pg (28-32); MEAN CORPUSCULAR HGB CONC 30.4 g/dL (31-35); MEAN CORPUSCULAR VOLUME 95.8 fL (81-99); MONOCYTES # (AUTO) 0.5 (0.2-0.8); MONOCYTES % 7.7 % (4.4-11.3); NEUTROPHILS # (AUTO) 3.8 (2.1-6.9); NEUTROPHILS % 54.7 % (38.7-80.0); PLATELET COUNT 165 x10e3/uL (140-360); RED BLOOD COUNT 3.33 x10e6/uL (3.6-5.1); RED CELL DISTRIBUTION WIDTH 15.6 % (11.7-14.4)
[2017-12-30 06:25] LABS: ANION GAP 10.3 mmol/L (8-16); CALCIUM 8.1 mg/dL (8.4-10.2); CREATININE, SERUM 1.12 mg/dL (0.57-1.11); MAGNESIUM 1.4 MG/DL (1.3-2.1); POTASSIUM 4.3 mmol/L (3.5-5.1)
[2017-12-30 07:10] LABS: FOLATE 7.1 ng/mL (7.0-15.4)
[2017-12-30 07:15] VITALS: BP 151/69
[2017-12-30 07:25] VITALS: BP 151/69
[2017-12-30 07:35] LABS: % IRON SATURATION 3 % (15-50); IRON < 5 ug/dL (50-170); TOTAL IRON BINDING CAPACITY 154 ug/dL (261-478); TRANSFERRIN 110 mg/dL (180-382)
[2017-12-30 07:49] LABS: FERRITIN 147.42 ng/mL (4.63-204.00)
[2017-12-30] MEDS: FAMOTIDINE 20 MG TAB PO SCH (07:49)
[2017-12-30] MEDS: CEFTRIAXONE SOD 1 GM VIAL IV SCH (08:25)
[2017-12-30] MEDS ORDERED: ceftin PO (08:49)
[2017-12-30] MEDS ORDERED: VITAMIN B-121000 MCG PO (08:49)
[2017-12-30] MEDS ORDERED: Calcium Carbonate PO (08:49)
[2017-12-30] MEDS ORDERED: CEFTIN PO (08:53)
[2017-12-30] MEDS ORDERED: CYANOCOBALAMIN 1,000 MCG TAB PO SCH (09:00)
[2017-12-30] MEDS: NYSTATIN 15 GM POWDER UD BTL TOP SCH (09:40)
[2017-12-30] MEDS: OYST-CAL-D 500MG TABLET PO SCH (09:40)
[2017-12-30] MEDS: BALSAM PERU/CASTOR OIL 60 GM OINT...G. TP SCH (09:40)
[2017-12-30 11:13] VITALS: BP 156/65
--- NOTE | 2017-12-30 15:27 | Discharge Summary ---
ADMISSION DIAGNOSES 1. Displaced suprapubic catheter. 2. Urinary tract infection. 3. Hypertension. 4. Gastroesophageal reflux disease. DISCHARGE DIAGNOSES 1. Displaced suprapubic catheter. 2. Urinary tract infection. 3. Hypertension. 4. Gastroesophageal reflux disease. 5. Hypocalcemia. HISTORY: The patient has a history of GERD, hypertension, hypocalcemia, suprapubic catheter placement. On past medical history, perforated bladder and pelvic abscess, CVA, uterine cancer and bladder perforation. HOSPITAL COURSE: An 87-year-old female admits for a displaced suprapubic catheter. The patient was taken to have the catheter replaced per urology on the day of admission. The patient was found to have a UTI with Proteus mirabilis. Blood cultures were negative. Chest x-ray on admission was negative. Once the urine culture came back, the patient was discharged home with 6 more days of Ceftin. She was also found to be anemic with a low B12, so her B12 was replaced and sent with a script for home. She will be discharged home with home medicines plus Ceftin and B12. She will follow up with urology in 4-5 weeks and primary care physician in 1-2 weeks. The patient understands discharge instructions. The patient is afebrile. Dictated by: Elizabeth Dave NP SHERRI TANG MD Job#: [id number]
== END 2017-12-30 15:15 | disposition home or self-care (01) | DRG 872 ==
LOC: ER 16:56 → ERHOLD 22:49 → MED/SURG3 23:03
PROVIDERS: ADMIT Internal Medicine; ATTEND Internal Medicine
PROC: 0T9B40Z Drainage of Bladder with Drainage Device, Percutaneous Endoscopic Approach (ICD-10-PCS; principal; 2017-12-28 11:30)
DX: A41.9 Sepsis, unspecified organism (principal); T83.020A Displacement of cystostomy catheter, initial encounter; N39.0 Urinary tract infection, site not specified; N17.9 Acute kidney failure, unspecified; I10 Essential (primary) hypertension; K21.9 Gastro-esophageal reflux disease without esophagitis; E83.51 Hypocalcemia; Z86.73 Personal history of transient ischemic attack (TIA), and cerebral infarction without residual deficits; N32.89 Other specified disorders of bladder; N39.498 Other specified urinary incontinence; N13.70 Vesicoureteral-reflux, unspecified
CPT/HCPCS: 36415; 71046; 74430; 80048; 80053; 81001; 82607; 82728; 82746; 83540; 83605; 83735; 84466; 85025; 87040; 87086; 87186; 93005; 96361; 99284; J0696; J1100; J2001; J2405; J3370; J7030

== ENCOUNTER 2018-04-15 14:45 | Emergency (ER) | payer MEDICARE, BC ==
[~2018-04-15] VITALS: Ht 144.8 cm; Wt 62.6 kg
[~2018-04-15 14:45] MED LIST changes: +CEFTIN PO; +VITAMIN B-121000 MCG PO; +ceftin PO
[2018-04-15] MEDS ORDERED: SODIUM CHLORIDE 0.9% 1000ML 2,000 ML ONE (16:04)
== END 2018-04-15 18:28 | disposition home or self-care (01) ==
LOC: ER 14:45
DX: Z46.6 Encounter for fitting and adjustment of urinary device (principal); R21 Rash and other nonspecific skin eruption
CPT/HCPCS: 51705; 99282; J7030

== ENCOUNTER 2018-04-22 08:30 | Emergency (ER) | payer MEDICARE, BC ==
[~2018-04-22] VITALS: Ht 144.8 cm; Wt 62.6 kg
[2018-04-22] MEDS ORDERED: SODIUM CHLORIDE 0.9% 1000ML 1,000 ML IV ONE (09:45)
[2018-04-22 09:54] LABS: BASOPHILS % 0.5 % (0.0-1.0); EOSINOPHILS # (AUTO) 0.2 (0.0-0.4); EOSINOPHILS % 3.9 % (0.0-6.0); HEMATOCRIT 36.2 % (34.2-44.1); HEMOGLOBIN 11.6 g/dL (12.0-16.0); LYMPHOCYTES # (AUTO) 2.1 (1.0-3.2); LYMPHOCYTES % 33.8 % (18.0-39.1); MEAN CORPUSCULAR HEMOGLOBIN 28.9 pg (28-32); MEAN CORPUSCULAR VOLUME 90.3 fL (81-99); MONOCYTES # (AUTO) 0.4 (0.2-0.8); MONOCYTES % 6.3 % (4.4-11.3); NEUTROPHILS # (AUTO) 3.4 (2.1-6.9); NEUTROPHILS % 55.2 % (38.7-80.0); PLATELET COUNT 204 x10e3/uL (140-360); RED BLOOD COUNT 4.01 x10e6/uL (3.6-5.1); RED CELL DISTRIBUTION WIDTH 16.7 % (11.7-14.4)
[2018-04-22 10:11] LABS: ANION GAP 14.7 mmol/L (8-16); CALCIUM 8.9 mg/dL (8.4-10.2); CREATININE, SERUM 1.06 mg/dL (0.57-1.11)
[2018-04-22 10:13] LABS: POTASSIUM 4.7 mmol/L (3.5-5.1)
[2018-04-22 11:02] LABS: CLARITY,URINE SL CLOUDY (CLEAR); COLOR,URINE ORANGE (YELLOW); LEUKOCYTE ESTERASE ,URINE 1+ (NEGATIVE)
[2018-04-22 11:03] LABS: BILIRUBIN,URINE NEGATIVE (NEGATIVE); KETONES,URINE NEGATIVE (NEGATIVE); NITRITE,URINE NEGATIVE (NEGATIVE); PROTEIN,URINE DIPSTICK 1+ (NEGATIVE); URINE UROBILINOGEN 0.2 mg/dL (0.2 - 1)
[2018-04-22 11:13] LABS: BACTERIA,URINE FEW /HPF; EPITHELIAL CELLS,URINE FEW /LPF; MUCUS,URINE FEW (RARE); RBC,URINE >50 /HPF (0-5)
[2018-04-22 11:51] VITALS: BP 130/76
== END 2018-04-22 12:55 | disposition home or self-care (01) ==
LOC: ER 08:30
DX: Z46.6 Encounter for fitting and adjustment of urinary device (principal); N30.01 Acute cystitis with hematuria; I10 Essential (primary) hypertension; Z86.73 Personal history of transient ischemic attack (TIA), and cerebral infarction without residual deficits
CPT/HCPCS: 36415; 51705; 80048; 81001; 85025; 87086; 99284; J7030

== ENCOUNTER 2018-05-10 20:04 | Emergency (ER) | payer MEDICARE, BC ==
[~2018-05-10] VITALS: Ht 144.8 cm; Wt 62.6 kg
[2018-05-10 21:21] LABS: CLARITY,URINE CLOUDY (CLEAR); COLOR,URINE YELLOW (YELLOW)
[2018-05-10 21:22] LABS: BILIRUBIN,URINE NEGATIVE (NEGATIVE); KETONES,URINE NEGATIVE (NEGATIVE); LEUKOCYTE ESTERASE ,URINE 2+ (NEGATIVE); NITRITE,URINE NEGATIVE (NEGATIVE); PROTEIN,URINE DIPSTICK 2+ (NEGATIVE); URINE UROBILINOGEN 0.2 mg/dL (0.2 - 1)
[2018-05-10 21:36] LABS: AMORPHOUS SEDIMENT,URINE FEW (FEW); BACTERIA,URINE MANY /HPF; RBC,URINE >50 /HPF (0-5); WBC,URINE (MAN) >50 /HPF (0-5)
[2018-05-10] MEDS ORDERED: LIDOCAINE HCL 1% LOCAL INJ 20 ML VIAL ONE (21:59)
[2018-05-10] MEDS ORDERED: CEFTRIAXONE SOD 1 GM VIAL ONE (21:59)
[2018-05-10] MEDS ORDERED: CEFTRIAXONE SOD 1 GM VIAL IM ONE (22:00)
[2018-05-10 22:36] VITALS: BP 133/76
--- NOTE | 2018-05-10 22:38 | NUR ---
NO APPARENT ADVERSE REACTION TO MEDICATION, DC'D HOME WITH FAMILY
== END 2018-05-10 22:37 | disposition home or self-care (01) ==
LOC: ER 20:04
DX: R39.15 Urgency of urination (principal); R10.2 Pelvic and perineal pain; N30.01 Acute cystitis with hematuria; I10 Essential (primary) hypertension; F03.90 Unspecified dementia, unspecified severity, without behavioral disturbance, psychotic disturbance, mood disturbance, and anxiety
CPT/HCPCS: 81001; 87086; 87186; 99283; J0696; J2001

== ENCOUNTER 2018-05-16 06:26 | Emergency (ER) | payer MEDICARE, BC ==
[~2018-05-16] VITALS: Ht 144.8 cm; Wt 54.4 kg
--- NOTE | 2018-05-16 06:55 | NUR ---
RECEIVED PT FROM LOBBY VIA W/C WITH FAMILY AT BEDSIDE. PT INTO ER 9
--- NOTE | 2018-05-16 07:20 | NUR ---
SUPRAPUBIC CATHETER REPLACED BY DR. ALVAREZ WITH 16 F CATHETER. PER DAUGHTER BULB ONLY HOLDS 3 MM SALINE. PT TOLERATED PROCEDURE WELL. PINK URINE DRAINING TO LEG BAG. CATHETER SECURED WITH STABILIZATION DEVICE TO RIGHT LEG. NOTED THAT PT HAS YEAST INFECTION AROUND CATHETER SITE AND PERINEAL AREA.
[2018-05-16 07:33] VITALS: BP 156/74
== END 2018-05-16 07:57 | disposition home or self-care (01) ==
LOC: ER 06:26
DX: Z46.6 Encounter for fitting and adjustment of urinary device (principal)
CPT/HCPCS: 99282

== ENCOUNTER 2018-05-28 09:42 | Inpatient (IN) | payer MEDICARE, BC ==
[~2018-05-28] VITALS: Ht 144.8 cm; Wt 50.3 kg
--- NOTE | 2018-05-28 10:11 | NUR ---
Xray at bedside.
[2018-05-28 10:17] LABS: BASOPHILS % 0.4 % (0.0-1.0); EOSINOPHILS # (AUTO) 0.3 (0.0-0.4); EOSINOPHILS % 3.2 % (0.0-6.0); HEMATOCRIT 39.2 % (34.2-44.1); HEMOGLOBIN 12.6 g/dL (12.0-16.0); LYMPHOCYTES # (AUTO) 3.9 (1.0-3.2); LYMPHOCYTES % 46.3 % (18.0-39.1); MEAN CORPUSCULAR HEMOGLOBIN 29.4 pg (28-32); MEAN CORPUSCULAR HGB CONC 32.1 g/dL (31-35); MEAN CORPUSCULAR VOLUME 91.6 fL (81-99); MONOCYTES # (AUTO) 0.5 (0.2-0.8); MONOCYTES % 5.3 % (4.4-11.3); NEUTROPHILS # (AUTO) 3.8 (2.1-6.9); NEUTROPHILS % 44.4 % (38.7-80.0); PLATELET COUNT 188 x10e3/uL (140-360); RED BLOOD COUNT 4.28 x10e6/uL (3.6-5.1); RED CELL DISTRIBUTION WIDTH 15.5 % (11.7-14.4)
--- NOTE | 2018-05-28 10:35 | NUR ---
Gauze and abd applied to pt's abdomen to the site where suprapubic catheter was removed, barrier cream placed onto the pt beneath the gauze and abd pad to prevent skin breakdown.
--- NOTE | 2018-05-28 10:38 | Diagnostic Imaging Report ---
A single frontal view of the chest. HISTORY: Cough COMPARISON: Chest radiograph December 26, 2017, November 03, 2017 DISCUSSION: Portable technique, limits sensitivity of the exam. Soft tissue attenuation partially limits sensitivity of the exam. Right anterior oblique rotation. Tubes/Lines: None Lungs and pleura: Mild biapical pleural-parenchymal scarring. Increased interstitial markings. No consolidative pneumonia or pulmonary alveolar edema. Mild atelectasis adjacent to the hiatal hernia. No definite pleural effusion or pneumothorax is identified. Heart and mediastinum: Once again, a large hiatal hernia which obscures the cardiac silhouette. Bones and soft tissues: Unchanged IMPRESSION: Increased interstitial markings, considerations include mild interstitial edema versus an atypical (including viral) infection. Signed by: Dr. Ross Reed D.O., M.M.M. on 05/28/2018 10:35 AM
[2018-05-28 10:39] LABS: ALANINE AMINOTRANSFERASE 10 IU/L (0-55); ALBUMIN 3.3 g/dL (3.5-5.0); ALBUMIN/GLOBULIN RATIO 0.7 (0.8-2.0); ALKALINE PHOSPHATASE 90 IU/L (40-150); ANION GAP 11.9 mmol/L (8-16); BLOOD UREA NITROGEN 22 mg/dL (7-26); BUN/CREATININE RATIO 20 (6-25); CARBON DIOXIDE 26 mmol/L (22-29); CHLORIDE 102 mmol/L (98-107); CREATINE KINASE 36 IU/L (29-168); CREATININE, SERUM 1.08 mg/dL (0.57-1.11); EST GLOMERULAR FILTRATION RATE 48 ML/MIN (60-); GLUCOSE 108 mg/dL (74-118); LIPASE 129 U/L (8-78); POTASSIUM 3.9 mmol/L (3.5-5.1); SODIUM 136 mmol/L (136-145)
[2018-05-28 10:42] LABS: CLARITY,URINE CLOUDY (CLEAR); COLOR,URINE STRAW (YELLOW); LEUKOCYTE ESTERASE ,URINE 2+ (NEGATIVE); NITRITE,URINE NEGATIVE (NEGATIVE); PROTEIN,URINE DIPSTICK NEGATIVE (NEGATIVE)
[2018-05-28 10:43] LABS: BILIRUBIN,URINE NEGATIVE (NEGATIVE); KETONES,URINE NEGATIVE (NEGATIVE); URINE UROBILINOGEN 0.2 mg/dL (0.2 - 1)
[2018-05-28] MEDS ORDERED: CEFTRIAXONE SOD 1 GM/NS 50 ML 50 ML IV ONE (11:00)
[2018-05-28] MEDS ORDERED: CEFTRIAXONE SOD 1 GM/NS 50 ML 50 ML IV SCH ×2 (11:00→13:30)
--- NOTE | 2018-05-28 12:48 | NUR ---
Pt's Daughter and Son left phone numbers to be contacted when a room is assigned. Jessica Campbell: [phone] Jatin Campbell: [phone]
--- NOTE | 2018-05-28 13:10 | NUR ---
pt noted to be resting comfortably in bed with eyes closed at this time.
[2018-05-28 14:15] VITALS: BP 197/80
--- NOTE | 2018-05-28 14:15 | NUR ---
PT RECEIVED FROM ED TO ROOM 179, AA/O X1-2. ADM ASSESSMENT COMPLETE, VS WNL, BP ELEVATED. PER ER NURSE, DAUGHTER REPORTED PT STOPPED TAKING HER BP MEDICATIONS. PT POOR HEALTH HISTORIAN, WILL SPEAK WITH DAUGHTER UPON ARRIVAL. PT ORIENTED TO ROOM AND CALL SYSTEM. BED ALARM ON.
[2018-05-28 17:28] VITALS: BP 144/80
--- NOTE | 2018-05-28 18:30 | NUR ---
FREQUENTLY CHANGING SUPRAPUBIC STOMA PADS DUE TO CONTINUED URINARY LEAKING. AREA CLEANSED, BARRIER CREAM APPLIED.
--- NOTE | 2018-05-28 18:36 | NUR ---
SPOKE WITH DR Francis PATTON, ADVISED HE WILL NOT PLACE A NEW SUPRAPUBIC CATHETER PT HAS A CONTRACTED BLADDER. PT TO FOLLOWUP IN OFFICE AFTER DISCHARGE. CONTINUE PAD CHANGES NEEDED.
--- NOTE | 2018-05-28 19:51 | NUR ---
Received patient awake on bed, on semi-fowlers position, alert. Call light within easy reached, advised to call for assistance when needed, patient verbalized understanding. Bed is low and locked position, bed alarm on. Will continue to monitor closely
[2018-05-28 19:53] VITALS: BP 154/72
--- NOTE | 2018-05-28 20:30 | NUR ---
urine leaking from the stoma, ABD pads changed.
[2018-05-28 20:43] VITALS: BP 154/72
--- NOTE | 2018-05-28 23:45 | NUR ---
urine is leaking from the stoma, ABD pads changed
[2018-05-28 23:47] VITALS: BP 146/86
[2018-05-29] VITALS (8 sets, daily range): BP systolic 146–171; BP diastolic 64–84
--- NOTE | 2018-05-29 04:00 | NUR ---
urine leaking from the stoma, ABD pad changed.
[2018-05-29 05:46] LABS: BASOPHILS % 0.6 % (0.0-1.0); EOSINOPHILS # (AUTO) 0.4 (0.0-0.4); EOSINOPHILS % 5.2 % (0.0-6.0); HEMATOCRIT 39.7 % (34.2-44.1); HEMOGLOBIN 12.1 g/dL (12.0-16.0); LYMPHOCYTES # (AUTO) 2.8 (1.0-3.2); LYMPHOCYTES % 38.8 % (18.0-39.1); MEAN CORPUSCULAR HEMOGLOBIN 28.3 pg (28-32); MEAN CORPUSCULAR HGB CONC 30.5 g/dL (31-35); MEAN CORPUSCULAR VOLUME 92.8 fL (81-99); MONOCYTES # (AUTO) 0.4 (0.2-0.8); MONOCYTES % 5.8 % (4.4-11.3); NEUTROPHILS # (AUTO) 3.5 (2.1-6.9); NEUTROPHILS % 49.3 % (38.7-80.0); PLATELET COUNT 195 x10e3/uL (140-360); RED BLOOD COUNT 4.28 x10e6/uL (3.6-5.1); RED CELL DISTRIBUTION WIDTH 15.1 % (11.7-14.4)
[2018-05-29 06:04] LABS: ANION GAP 13.1 mmol/L (8-16); CALCIUM 9.1 mg/dL (8.4-10.2); CREATININE, SERUM 0.89 mg/dL (0.57-1.11); POTASSIUM 4.1 mmol/L (3.5-5.1)
--- NOTE | 2018-05-29 08:30 | NUR ---
PT RECEIVED SITTING UP IN BED, EATING BREAKFAST. AA/O X2. ASSESSMENT COMPLETE, VSS. NO C/O AT PRESENT, DENIES PAIN. PADS CHANGED TO SUPRAPUBIC STOMA, SKIN PROTECTANT APPLIED.
[2018-05-29] MEDS ORDERED: ACETAMINOPHEN 325 MG TAB PO PRN (10:30)
[2018-05-29] MEDS ORDERED: ONDANSETRON HCL INJ 2MG/ML 2ML 2 MG/ML VIAL IV PRN (10:30)
[2018-05-29] MEDS ORDERED: HYDROCODONE/APAP 5MG-325MG TAB PO PRN (10:30)
--- NOTE | 2018-05-29 10:30 | NUR ---
SEEN BY DR ORTEGA, NEW ORDERS NOTED. INFORMED OF DR PATTON'S RECOMMENDATIONS
[2018-05-29] MEDS: CEFTRIAXONE SOD 1 GM/NS 50 ML 50 ML IV SCH (10:52)
[2018-05-29] MEDS: SODIUM CHLORIDE 0.9% 1000ML 1,000 ML IV SCH (10:52)
--- NOTE | 2018-05-29 11:25 | History and Physical ---
CHIEF COMPLAINT: Suprapubic catheter removed, has urine leakage. HISTORY OF PRESENT ILLNESS: This 87-year-old female with multiple comorbidities has a history of suprapubic urinary catheter dislodged on the last admission. She also has a history of neurogenic bladder and has a history of CVA in the past. She comes in with a dislodged suprapubic catheter with urine leakage around the stoma. On the last admission, I saw her in November. Interventional radiology inserted it under fluoroscopy. Since then she has been doing great with no issues. Now she represents with similar findings and needing further evaluation. REVIEW OF SYSTEMS: Unable to obtain, the patient has baseline dementia. ALLERGIES: NO KNOWN DRUG ALLERGIES. HOME MEDICATIONS 1. Vitamin B12 1,000 mcg p.o. daily. 2. Colace 100 mg p.o. b.i.d. 3. Magnesium oxide 400 mg p.o. b.i.d. PAST MEDICAL HISTORY: Has baseline dementia. Has history of CVA in the past, neurogenic bladder, history of hypertension. SURGICAL HISTORY: Suprapubic catheter placement in the past and current. FAMILY HISTORY: Hypertension and diabetes. SOCIAL HISTORY: Denies drugs and alcohol. Does not smoke. Lives with family. Good social support. VITAL SIGNS: Temperature is 97.4, pulse 75, respiratory rate is 18, blood pressure 171/73. Pulse ox 95% on room air. LAB FINDINGS: White count 7, hemoglobin 12, hematocrit 40, platelets 195. Chemistries: Sodium 138, potassium 4.1, chloride 103, bicarb 26, anion gap 13, BUN 19, creatinine 0.89. Glucose is 102. Calcium is 9.1. Lipase is 129. Urinalysis is concerning for UTI. Flu was negative. MICROBIOLOGY: Urine cultures no growth. IMAGING STUDIES: Chest x-ray shows increased interstitial markings. Considerations include mild pulmonary edema versus atypical viral infection. PHYSICAL EXAMINATION GENERAL: She has baseline dementia. Alert and awake on examination. HEENT: Head is normocephalic and atraumatic. Eyes: Pupils are equal, round and reactive to light bilaterally. The extraocular movements are intact bilaterally. NECK: Supple with good range of motion throughout. No evidence of erythema or exudates in the posterior pharynx. Has poor dentition. PULMONARY: Clear to auscultation bilaterally. No wheezing, no rales, no rhonchi, no crackles appreciated. CARDIOVASCULAR: Positive S1 and S2. No murmur, rub or gallop appreciated. ABDOMEN: Soft, nondistended and nontender to palpation. Bowel sounds present. MUSCULOSKELETAL: Unable to assess due to baseline dementia. NEUROLOGIC: Unable to assess, has baseline dementia. SKIN: Intact, warm to touch. Good capillary refill. PSYCHIATRIC: At baseline. EXTREMITIES: No edema. Good range of motion throughout. IMPRESSION 1. Dislodged suprapubic urinary catheter. 2. History of neurogenic bladder. 3. History of cerebrovascular accident in the past. 4. Chronic kidney disease, stage 2. PLAN: Patient was admitted because of a dislodged catheter. Per urology at this time, there will not be any suprapubic catheter placement. She will need some intervention surgically; but because of the patient's multiple comorbidities, she is currently not a candidate for it. She is on IV antibiotics. I do not think the patient actually has a urinary tract infection. We will put her on low-dose fluids and likely discharge home tomorrow. I am going to resume the same home medications for now. Continue on observation. Job#: [id number]
--- NOTE | 2018-05-29 11:49 | NUR ---
WOUND CARE CONSULT- INITIAL EVAL -Patient admitted to ER with AMS, Unresolved UTI Morganella. -IV ABX in progress for UTI -S/P SPC removal. Area being dressed with Zinc Oxide to protect periwound, and ABD Pads for Urine Output. - Cardiac Diet LABS: WBC7.08 HGB12.1 HCT39.7 NEUT%49.3 ALB3.3 [id number] Urine CX - No Growth -WC CONSULTED: Concerns of Possible P.U. to Sacrum. PATIENT VISIT: - Patient in bed calm and in good spirits. Cooperative. Patient expects to go back home and daughter lives with her. -Suprapubic Catheter site draining urine constantly - BS =15 with moisture being the biggest concern, patient able to turn self. - MOD PUP in progress with Alternating Pressure Mattress in place. - Heel Protectors in place - Incontinent and Diapered. IMPRESSION: 1. Uncontrolled Output to SPC Area- S/P SPC Removal. 2. Sacrum - Healed Pressure Ulcer - Scar Tissue - [place] with Healthy Appearance. No Erythema. RECOMMENDATION: 1. Sacrum - Continue Applying Allevyn Foam Sacrum Daily. 2. Suprapubic Area at Catheter Removal Site - Urostomy Pouch appliance every 3 days. 3. Assist patient to Turn and Reposition every 2 Hours 4. Continue use of Alternating Pressure Air Mattress 5. Continue Bilateral Heel Protectors while in bed. Thank you for consulting with Wound Care. Addendum: 05/29/18 at 1204 by Donavan Woody RN Amended: Links added.
--- NOTE | 2018-05-29 14:55 | NUR ---
SOCIAL WORK INITIAL ASSESSMENT Delivery Sales Worker to bedside to discuss plan of care with patient/family. CM/SW role and care transitions discussed. Anticipated discharge plan discussed along with duration of care. CM/SW discussed patients right to make decisions in care. CM/SW work hours given. Patient lives: IN OWN HOUSE WITH DAUGHTER Admit/Transfer: VIA ED FROM HOME POA/Emergency contact: DAUGHTER AMANDA REYES REMEMBER NUMBER BUT IT IS ON FILE Current/Previous Home Health: NONE PCP/Follow-up Care: [facility] Current/Previous DME: SARAH BETH Other Services: NONE Employment Status: RETIRED Areas of Concerns: NONE Referral Needs: NONE Education Needs: NONE IMM/SUAZO given and signed (if applicable): SUAZO Goal for discharge: RETURN HOME INDEPENDENTLY CM/SW left business card at the bedside with contact information. Name and number was also written on the patients whiteboard. Patient verbalized understanding of discussion. CM will follow-up with ongoing discharge and transition of care needs.
--- NOTE | 2018-05-29 15:23 | NUR ---
UROSTOMY POUCH PLACED TO SUPRAPUBIC STOMA SITE, WILL MONITOR
--- NOTE | 2018-05-29 15:30 | NUR ---
DAUGHTER PRESENT, UPDATED ON CARE
--- NOTE | 2018-05-29 15:49 | NUR ---
Nutrition Screen Note RD Recommendation for Physician: -Continue cardiac diet as ordered Plan of Care: RD following, monitoring for tolerance and adequacy Nutrition reason for involvement: Nutrition Risk Trigger MST Primary Diagnose(s): Dislodged suprapubic urinary catheter. PMH: dementia, neurogenic bladder, CVA, CKD II Ht: 57in Wt: 109lb BMI: 23.6kg/m2 IBW: 85lb RD Assessment: (05/29) Chart reviewed. Labs and meds reviewed. 87yo F, who is admitted for dislodged suprapubic catheter with urine leakage around the stoma. Negative urine culture. Currently on IVF. Visited pt in the room. Pt is a poor historian due to hx of dementia. No family presents on bedside to provide hx. Pt has some muscle and fat loss upon NFPA. Pt states good appetite with ~50% observed lunch intake. Will continue to monitor and follow. Current Diet: Cardiac diet Malnutrition Evaluation (05/29/18) The patient does not meet criteria for a specified degree of malnutrition at this time. Will re-evaluate at follow-up as appropriate. Diet Education Needs Assessment: Diet education not indicated. Nutrition Care Level: low Signed: Danielle Espinal, MS, RD, LD
[2018-05-29] MEDS: MAGNESIUM OXIDE 400 MG TAB PO SCH (18:20)
[2018-05-29] MEDS: DOCUSATE SODIUM 100 MG CAP PO SCH (18:20)
[2018-05-30] VITALS (8 sets, daily range): BP systolic 127–180; BP diastolic 73–86
[2018-05-30] MEDS: SODIUM CHLORIDE 0.9% 1000ML 1,000 ML IV SCH ×2 (04:46→15:14)
[2018-05-30 05:59] LABS: BASOPHILS % 0.4 % (0.0-1.0); EOSINOPHILS # (AUTO) 0.2 (0.0-0.4); HEMATOCRIT 37.9 % (34.2-44.1); LYMPHOCYTES # (AUTO) 2.2 (1.0-3.2); LYMPHOCYTES % 32.7 % (18.0-39.1); MEAN CORPUSCULAR HEMOGLOBIN 28.8 pg (28-32); MEAN CORPUSCULAR HGB CONC 31.7 g/dL (31-35); MEAN CORPUSCULAR VOLUME 91.1 fL (81-99); MONOCYTES # (AUTO) 0.4 (0.2-0.8); MONOCYTES % 6.6 % (4.4-11.3); NEUTROPHILS # (AUTO) 3.8 (2.1-6.9); PLATELET COUNT 222 x10e3/uL (140-360); RED BLOOD COUNT 4.16 x10e6/uL (3.6-5.1)
[2018-05-30 06:15] LABS: ANION GAP 12.1 mmol/L (8-16); CALCIUM 8.9 mg/dL (8.4-10.2); CREATININE, SERUM 1.18 mg/dL (0.57-1.11); POTASSIUM 4.1 mmol/L (3.5-5.1)
[2018-05-30] MEDS: DOCUSATE SODIUM 100 MG CAP PO SCH ×2 (08:30→16:38)
[2018-05-30] MEDS: CYANOCOBALAMIN 1,000 MCG TAB PO SCH (08:30)
[2018-05-30] MEDS: MAGNESIUM OXIDE 400 MG TAB PO SCH ×2 (08:30→16:38)
--- NOTE | 2018-05-30 08:30 | NUR ---
PT RECEIVED SITTING UP IN BED, EATING BREAKFAST. AA/O X1-2. ASSESSMENT COMPLETE, VSS. NO C/O AT PRESENT, DENIES PAIN. UROSTOMY IN PLACE, DRAINING WELL.
[2018-05-30] MEDS ORDERED: CEFDINIR300 MG PO (10:29)
--- NOTE | 2018-05-30 10:49 | NUR ---
SEEN BY ALEJANDRO HARRINGTON TO KEEP UROSTOMY. FOLLOWUP IN OFFICE
[2018-05-30] MEDS: CEFTRIAXONE SOD 1 GM/NS 50 ML 50 ML IV SCH (11:08)
--- NOTE | 2018-05-30 12:46 | NUR ---
UROSTOMY SUPPLIES AND EDUCATION PROVIDED TO DAUGHTER, VERBALIZED UNDERSTANDING. SON ALSO PRESENT.
--- NOTE | 2018-05-30 14:03 | NUR ---
SPOKE WITH DR ORTEGA DAUGHTER IS REFUSING TO TAKE PATIENT HOME, FEELS PT IS MORE CONFUSED. NEW ORDERS NOTED.
--- NOTE | 2018-05-30 15:00 | NUR ---
MEETING WITH PT'S DTR AND SON WHO STATE PT IS HALLUCINATING AND SEEING "SMOKE FROM THE T.V." REFUSING TO TAKE PT HOME BECAUSE OF INCREASED CONFUSION DESPITE NEGATIVE UA CX CALL PLACED TO DR ORTEGA INT ORDERS FOR DELIRIUM AND METABOLIC ENCEPHALOPATHY IF PT NEEDS PLACEMENT THEY ARE REQUESTING COURTYARDS OF [place] PT HAS BEEN THERE BEFORE FAMILY CONFERENCE WITH DR ORTEGA IN THE MORNING BETWEEN 8:30 AND 9
--- NOTE | 2018-05-30 16:14 | NUR ---
ORDERS RECD FOR HOME HEALTH AND UROSTOMY SUPPLIES CM MET WITH DAUGHTER JORDY RIOS [phone] AND PT'S SON IN ROOM ATTEMPTED TO GET CHOICE LETTER FROM DAUGHTER FOR HOME HEALTH DAUGHTER REFUSED STATES HER MOTHER IS VERY CONFUSED AND HALLUCINATING, "SEEING SMOKE COME OUT OF THE T.V." JORDY STATES THAT HER MOTHER WAS NOT CONFUSED LIKE THIS WHEN ADMITTED AND SHE CANNOT TAKE HER HOME NURSE CALLED DR ORTEGA AND NOTIFIED HIM ORDERS REC'D FOR INPT FOR METABOLIC ENCEPHALOPATHY AND DELIRIUM CT BRAIN ORDERED CM SPOKE WITH DTR JORDY AND SHE IS PLEASED WITH PLAN OF CARE STATES SHE WILL TAKE PT HOME IF CONFUSION IMPROVES, OTHERWISE MAY NEED N.H. PLACEMENT/SNF CM TO FOLLOW
--- NOTE | 2018-05-30 16:19 | Discharge Summary ---
DISCHARGE DIAGNOSES 1. Dislodged suprapubic urinary catheter which was removed by urology. 2. History of neurogenic bladder. 3. History of cerebrovascular accident in the past. 4. Chronic kidney disease stage 2. 5. Probable urinary tract infection. CONSULTANTS: Urology. VITALS SIGNS: Temperature is 97.8, pulse 75, respiratory rate 16, blood pressure 127/84, pulse ox 93% on room air. LAB FINDINGS: Show white count 6.7, hemoglobin is 12, hematocrit is 38, platelets of 222. Chemistry: sodium 137, potassium 4.1, chloride 102, bicarb 24, anion gap of 12, BUN is 21, creatinine is 1.1, glucose is 115, calcium 8.9. Urinalysis: probable UTI. Flu is negative. MICROBIOLOGY: Urine culture was negative. IMAGING STUDIES: Chest x-ray: mild interstitial edema versus atypical viral infection. HOSPITAL COURSE: This is an 87-year-old female who came into the ED with urine leakage around her stoma from a dislodged suprapubic catheter. Apparently the patient has had a suprapubic catheter removed by urology some time ago. Patient's family reported that there was some urine from the stoma. Urology was consulted and was told that this was normal and there was no other further workup needed at this time. Patient was on IV antibiotics. She was viral bronchitis. Patient will be discharged on oral antibiotics for completion of 7 total more days. On the day of discharge, vital signs stable, labs reviewed and stable. Patient seen and evaluated and examined thoroughly on the day of discharge with no new complaints. Patient verbalized understanding and agreed with plan of care, to follow up as an outpatient with the primary care physician in one week and urologist in 1 to 2 weeks' time. MEDICATIONS: See med reconciliation form including Omnicef 300 mg 1 capsule p.o. b.i.d. x7 days. DISPOSITION: To home. CONDITION: Stable. DIET: Heart-healthy. In the event of any worsening symptoms, patient is advised to come back to the ED for further evaluation. Discharge summary took greater than 35 minutes. ИВАН ORTEGA MD Job#: [id number] TA
--- NOTE | 2018-05-30 16:22 | NUR ---
PT HAD [facility] [phone] AND WOULD LIKE TO PROCEED WITH THEIR SERVICES WHEN DISCHARGED
--- NOTE | 2018-05-30 16:24 | Diagnostic Imaging Report ---
EXAMINATION: Head CT HISTORY: Altered mental status, history of UTI COMPARISON: None. TECHNIQUE: Multidetector axial images were obtained without contrast from the foramen magnum to the vertex . The images were reconstructed using brain and bone algorithms. Thin section brain images were reformatted into coronal and sagittal planes. Image quality: Motion/streaking artifact limits the evaluation of the skull base and posterior cranial fossa. Dose modulation, iterative reconstruction, and/or weight based adjustment of the mA/kV was utilized to reduce the radiation dose to as low as reasonably achievable. FINDINGS: Parenchyma: 1. Moderate to severe confluent periventricular, farias radiata and centrum semiovale white matter hypodensities, most likely nonspecific chronic microvascular ischemic changes. 2. Age indeterminate likely chronic ischemic lacunar infarcts involving the anterior limb of the right internal capsule, the right lentiform nucleus and right thalamocapsular region. 3. No mass or hemorrhage. No CT evidence of acute territorial vascular insult. Extra-axial spaces:No abnormal density. No extra-axial fluid collections Brain volume: Normal for age. Ventricles: No hydrocephalus or displacement. Arteries: Hyperdensity of the basilar artery is likely artifactual as there is prominent motion/streak artifact in the posterior fossa. Dural sinuses: No abnormal density. Extra-axial spaces: No abnormal density. Foramen magnum: No mass, Chiari malformation, or basilar invagination. Sella: No obvious mass. Paranasal/mastoid sinuses: Hypo pneumatization, sclerosis and opacification of the right mastoid air cells. Skull/Scalp: No lytic or blastic lesions. No fractures. IMPRESSION: 1. No acute intracranial hemorrhage. 2. Age-indeterminate ischemic lacunar infarcts as noted above. If there is clinical concern for acute infarction consider brain MRI for further evaluation. 3. Moderate confluent chronic microvascular ischemic changes. 4. Mild generalized parenchymal volume loss. 5. Nonspecific opacification of the right mastoid air cells. Signed by: Dr. Wendy Ware M.D. on 05/30/2018 4:21 PM
--- NOTE | 2018-05-30 20:00 | NUR ---
PATIENT WITH ELEVATED BP. NO PRN MEDS AVAILABLE. PAGED DR. ORTEGA.
--- NOTE | 2018-05-30 23:45 | NUR ---
UROSTOMY BAG LEAKING URINE. REPLACED UROSTOMY BAG. PATIENT TOLERATED PROCEDURE WELL.
[2018-05-31] VITALS (7 sets, daily range): BP systolic 121–195; BP diastolic 53–84
--- NOTE | 2018-05-31 00:50 | Consultation ---
DATE OF CONSULTATION: May 30, 2018 INITIAL VISIT SERVICE: Urology. ATTENDING PHYSICIAN: Dr. Calderón HISTORY OF PRESENT ILLNESS: This is an 87-year-old patient who is well known to me from multiple previous admissions as well as office visits. The patient has a history of perforation of the bladder as well as gradually reaching a point of almost completely contracted bladder, which contained only a volume of few mL. She is being treated in the past with suprapubic tube, however, due to the contracted bladder, the effectiveness of the suprapubic tube became negligible and it keeps being displaced. PAST MEDICAL HISTORY: Significant for: 1. Dementia. 2. History of CVA. 3. Neurogenic bladder. 4. Contracted bladder. 5. Hypertension. 6. Urinary incontinence. FAMILY HISTORY: Hypertension and diabetes. SOCIAL HISTORY: No use of drugs, alcohol, or tobacco. REVIEW OF SYSTEMS: Difficult to obtain from the patient a very clear review of systems. However, she does not complain about any pain or shortness of breath. Does have leakage from the suprapubic site more than from below. PHYSICAL EXAMINATION: GENERAL: Patient is alert and awake. VITAL signs: Blood pressure 170/73, pulse 74, respirations 18, temperature 97.4. HEAD: Symmetric. EYES: Normal movement. NECK: No masses, no JVD. CHEST: Clear. ABDOMEN: Soft. Suprapubic site leaking. : External genitalia atrophic. LOWER EXTREMITIES: Moves all. LABORATORY DATA: Reviewed. She does have a mild anemia, hemoglobin 12. Creatinine is normal 0.89, BUN 19. Culture pending. IMPRESSION: 1. Urinary incontinence. 2. Contracted bladder. 3. History of cerebrovascular accident. 4. Dementia. 5. History of perforated bladder. PLAN: Presently, patient does not seem to be a candidate for urinary diversion, which would be recommendation at a young and healthy person. I would recommend to put a collecting bag on the suprapubic site and diapers as needed. Will follow with you. Thank you. Job#: [id number]
--- NOTE | 2018-05-31 07:41 | NUR ---
PT RESTING IN BED, NO C/O PAIN OR S/S DISTRESS. FAMILY AT BEDSIDE.
--- NOTE | 2018-05-31 09:38 | NUR ---
paged re htn, no meds on emar.
[2018-05-31] MEDS: DOCUSATE SODIUM 100 MG CAP PO SCH ×2 (10:01→17:28)
[2018-05-31] MEDS: CEFTRIAXONE SOD 1 GM/NS 50 ML 50 ML IV SCH (10:01)
[2018-05-31] MEDS: MAGNESIUM OXIDE 400 MG TAB PO SCH ×2 (10:01→17:28)
[2018-05-31] MEDS: NIFEDIPINE CR 30 MG TAB PO SCH (10:01)
[2018-05-31] MEDS: CYANOCOBALAMIN 1,000 MCG TAB PO SCH (10:01)
[2018-05-31] MEDS ORDERED: GENTAMICIN 80MG/NS 100 ML 200 ML IV ONE (10:34)
--- NOTE | 2018-05-31 10:44 | Progress Note ---
DATE: May 31, 2018 MEDICINE PROGRESS NOTE SUBJECTIVE: The patient seems to be a little bit better today. Apparently yesterday she was having some visual hallucinations. Medications were reviewed, and there is currently no medication at this time except for pain medicine which she did not use that would cause her to hallucinate. VITAL SIGNS: Temperature is 97, pulse 84, respiratory rate 19, blood pressure 195/83, O2 sat 95% on room air. LAB FINDINGS: White count 6.7, hemoglobin 12, hematocrit 37.9, platelets 222. Chemistries: Sodium 137, potassium 4.1, chloride 105, bicarb 24, anion gap 12, BUN 21, creatinine 1.1. CT brain showed no intracranial hemorrhage. Indeterminate ischemic lacunar infarct as noted above. MRI was ordered. PHYSICAL EXAMINATION GENERAL: Not in acute distress. Alert and oriented x3. Cooperative on examination. HEENT: Head is normocephalic and atraumatic. Eyes: Pupils are equal, round and reactive to light bilaterally. The extraocular movements are intact bilaterally. NECK: Supple with good range of motion. Throat: No evidence of erythema or exudates in the posterior pharynx. Has poor dentition. PULMONARY: Clear to auscultation bilaterally. No wheezing, no rales, no rhonchi, no crackles appreciated. CARDIOVASCULAR: Positive S1 and S2. No murmur, rub or gallop appreciated. ABDOMEN: Soft, nondistended and nontender to palpation. Bowel sounds present. MUSCULOSKELETAL: Strength is 5/5 throughout. No weakness is appreciated. NEUROLOGIC: Cranial nerves II through XII are grossly intact. No evidence of any neurological deficit on exam. SKIN: Intact, warm to touch. Good capillary refill. PSYCHIATRIC: Normal affect and mood. EXTREMITIES: No edema. Good range of motion throughout. IMPRESSION 1. Metabolic encephalopathy likely to be from in-hospital delirium. 2. Dislodged suprapubic urinary catheter. 3. History of neurogenic bladder. 4. History of cerebrovascular accident in the past. 5. Chronic kidney disease, stage 2. 6. Probable urinary tract infection. 7. Hypertension. PLAN: At this time, CT scan of the brain seems to be very inconclusive. We will get an MRI of the brain to further evaluate. There is no source of infection. White count is normal, afebrile. Etiology of her confusion seems to be very episodic, and it seems to be in-hospital delirium. Medications were reviewed. I discussed the case with nursing staff. I did go ahead and add nifedipine XL 60 mg daily with 1st dose now due to elevated blood pressure. Will monitor her overnight. In the event she continues to be more confused, will get neurology consultation. At this time, the family's questions have been answered, and they seem to be satisfied at this time. Job#: [id number]
--- NOTE | 2018-05-31 12:00 | Diagnostic Imaging Report ---
EXAMINATION: MRI of the brain without contrast. HISTORY: Confusion, alteration of mental status, patient in IMCU due to UTI COMPARISON: Head CT on 05/30/2018 TECHNIQUE: Sagittal T2; axial DWI, T2, FLAIR, T1-IR, T2 gradient echo; coronal FLAIR. IMAGE QUALITY: Adequate. FINDINGS: Parenchyma: 1. Moderate to severe confluent periventricular, farias radiata, centrum semiovale, juxtacortical/subinsular white matter and central lucie T2 and FLAIR hyperintensities, most likely nonspecific chronic microvascular ischemic changes. 2. Chronic ischemic lacunar infarcts involving the right the putamen and caudate nuclei, bilateral thalami, left head of the caudate nucleus and dorsal lucie. No acute infarcts. Nucleus and right thalamocapsular region. 3. No mass, hemorrhage, or acute infarcts. Skull: Unremarkable. Vessels: Expected flow voids present in the major arteries and dural sinuses. Extra-axial spaces: No abnormal signal intensity or mass effect. Brain volume: Within normal limits for age. Ventricles: No hydrocephalus or displacement. Foramen magnum: Unremarkable. Sella: Unremarkable. Paranasal / mastoid sinuses: Opacification of the right mastoid air cells and middle ear. IMPRESSION: 1. No acute intracranial abnormalities, particularly no acute infarcts. 2. Severe confluent white matter chronic microvascular ischemic changes. 3. Small chronic lacunar infarcts as detailed above. 4. Nonspecific partial opacification of the right mastoid air cells/middle ear, likely effusion. Signed by: Dr. Wendy Ware M.D. on 05/31/2018 11:56 AM
--- NOTE | 2018-05-31 12:06 | NUR ---
left vm for md re mri
--- NOTE | 2018-05-31 15:45 | NUR ---
aware of mri results and current bp 132/60
--- NOTE | 2018-05-31 19:00 | NUR ---
received report from day nurse. patient is resting comfortably in bed. bed is in lowest position and call light is within reach. will continue to monitor patient.
[2018-06-01 04:00] VITALS: BP 121/56
[2018-06-01 05:30] LABS: BASOPHILS % 0.5 % (0.0-1.0); EOSINOPHILS # (AUTO) 0.4 (0.0-0.4); EOSINOPHILS % 4.6 % (0.0-6.0); HEMOGLOBIN 12.4 g/dL (12.0-16.0); LYMPHOCYTES # (AUTO) 4.3 (1.0-3.2); LYMPHOCYTES % 49.4 % (18.0-39.1); MEAN CORPUSCULAR HEMOGLOBIN 29.1 pg (28-32); MEAN CORPUSCULAR HGB CONC 31.8 g/dL (31-35); MEAN CORPUSCULAR VOLUME 91.5 fL (81-99); MONOCYTES # (AUTO) 0.5 (0.2-0.8); MONOCYTES % 5.5 % (4.4-11.3); NEUTROPHILS # (AUTO) 3.5 (2.1-6.9); NEUTROPHILS % 39.9 % (38.7-80.0); PLATELET COUNT 183 x10e3/uL (140-360); RED BLOOD COUNT 4.26 x10e6/uL (3.6-5.1)
[2018-06-01 05:45] LABS: ANION GAP 11.4 mmol/L (8-16); CALCIUM 9.1 mg/dL (8.4-10.2); CREATININE, SERUM 1.02 mg/dL (0.57-1.11); POTASSIUM 4.4 mmol/L (3.5-5.1)
--- NOTE | 2018-06-01 07:01 | NUR ---
report given to day nurse. patient is resting comfortably in bed. bed is in lowest position and call light is within reach.
[2018-06-01 07:42] VITALS: BP 108/55
[2018-06-01 08:26] VITALS: BP 108/55
--- NOTE | 2018-06-01 08:37 | NUR ---
CALL REC'D FROM PT'S DAUGHTER STATING "MY MOM SNAPPED OUT OF IT. SHE'S DOING MUCH BETTER" STATES SHE DOESN'T WANT SNF WANTS HER TO COME HOME WITH HOME HEALTH CARE
[2018-06-01] MEDS: NIFEDIPINE CR 30 MG TAB PO SCH (08:44)
[2018-06-01] MEDS: MAGNESIUM OXIDE 400 MG TAB PO SCH (08:44)
[2018-06-01] MEDS: DOCUSATE SODIUM 100 MG CAP PO SCH (08:44)
[2018-06-01] MEDS: CYANOCOBALAMIN 1,000 MCG TAB PO SCH (08:44)
[2018-06-01 10:14] LABS: ANISOCYTOSIS SLIGHT; EOSINOPHILS % (MANUAL) 5 % (0-7); LYMPHOCYTES % (MANUAL) 51 % (19-48); MONOCYTES % (MANUAL) 5 % (3.4-9.0); NEUTROPHILS % (MANUAL) 31 % (40-74)
[2018-06-01 10:15] LABS: HYPOCHROMASIA SLIGHT; PLATELET ESTIMATE ADEQUATE; PLATELET MORPHOLOGY COMMENT FEW LARGE; POIKILOCYTOSIS SLIGHT; RBC MORPHOLOGY COMMENT NORMAL
[2018-06-01 11:17] VITALS: BP 118/57
--- NOTE | 2018-06-01 11:39 | NUR ---
PT'S DTR SIGNED CHOICE LETTER FOR [facility] PLACED ON CHART COPY TO PT IMM EXPLAINED, SIGNED AND ON CHART COPY TO PT FAXED ORDERS TO [facility] AT [phone] CONFIRMATION REC'D PHONE: [phone]
--- NOTE | 2018-06-01 11:59 | NUR ---
reviewed dc instructions with pt and daughter, verbalized understanding. provided ostomy care information and leg bag connection to ostomy bag teaching per MD. verbalized understanding. dc stable.
--- NOTE | 2018-06-01 15:25 | Discharge Summary ---
FINAL DISCHARGE DIAGNOSES 1. Metabolic encephalopathy, likely due to elevated high blood pressure. 2. Hypertensive urgency, improved. 3. Dislodged suprapubic urinary catheter. 4. History of neurogenic bladder. 5. History of cerebrovascular accident in the past. 6. Chronic kidney disease, stage 2. 7. Probable urinary tract infection. CREDIT CHARGE AUTHORIZER: Urology. VITAL SIGNS: Temperature is 98.8. Pulse 66, respiratory rate 17, blood pressure 108/55. Pulse ox 93% on room air. LAB FINDINGS: White count 8.7, hemoglobin 12, hematocrit 39, platelets 183. Chemistries: Sodium 142, potassium 4.4, pulse 107, bicarb 28, anion gap of 11, BUN 27, creatinine 1, glucose 117, calcium 9.1. Albumin 3.3, lipase 129. Urinalysis was negative. Urine culture was negative. IMAGING STUDIES: MRI of the brain showed no acute intracranial abnormality, particularly no acute infarct. It showed some small chronic lacunar infarcts in the past but no new acute findings seen. CT brain was found to be negative for any acute findings. Chest x-ray showed some mild interstitial edema. HOSPITAL COURSE: This is an 87-year-old female who came with underlying urinary leakage as well as metabolic encephalopathy. Urology was consulted. No further workup needed except for outpatient followup with them in their office. The patient will continue with no catheter on discharge. In terms of her encephalopathy, CT brain was negative. MRI of the brain was negative. The patient was being treated for probable UTI and will be discharging on Omnicef. Also, the patient's encephalopathy could be from hypertensive urgency, which improved with nifedipine XL. Current blood pressure is stable, and she will be discharged on nifedipine XL. The patient was back to normal baseline with no other issues. She is alert and oriented x3 at her baseline. On the day of discharge, vital signs were stable. Labs were reviewed and stable. The patient was evaluated and examined thoroughly on the day of discharge with no new complaints. The patient verbalized an understanding and agreed to the plan of care to follow up with her primary care physician in 1 week's time. MEDICATIONS: See med reconciliation form. DISPOSITION: Home. CONDITION: Stable. DIET: Heart healthy. In the event of any worsening symptoms, patient is advised to come back to the ED for further evaluation. This discharge summary took greater than 35 minutes. ИВАН ORTEGA MD Job#: [id number]
== END 2018-06-01 12:05 | disposition home health service (06) | DRG 698 ==
LOC: ER 09:42 → ERHOLD 13:31 → IMCU 13:53 → OBSVTOIN 05-30 14:21
PROVIDERS: ADMIT Internal Medicine; ATTEND Internal Medicine
DX: T83.020A Displacement of cystostomy catheter, initial encounter (principal); G93.41 Metabolic encephalopathy; N30.00 Acute cystitis without hematuria; N18.2 Chronic kidney disease, stage 2 (mild); N31.9 Neuromuscular dysfunction of bladder, unspecified; R32 Unspecified urinary incontinence; I16.0 Hypertensive urgency; Z86.73 Personal history of transient ischemic attack (TIA), and cerebral infarction without residual deficits; F03.90 Unspecified dementia, unspecified severity, without behavioral disturbance, psychotic disturbance, mood disturbance, and anxiety; I12.9 Hypertensive chronic kidney disease with stage 1 through stage 4 chronic kidney disease, or unspecified chronic kidney disease
CPT/HCPCS: 36415; 70450; 70551; 71045; 80048; 80053; 81001; 82550; 82553; 83690; 84484; 85025; 87086; 87400; 97139; 99284; G0378; J0696; J1580; J7030

== ENCOUNTER 2018-07-05 07:16 | Inpatient (IN) | payer MEDICARE, BC ==
[~2018-07-05] VITALS: Ht 154.9 cm; Wt 75.4 kg
[~2018-07-05 07:16] MED LIST changes: +CEFDINIR300 MG PO
[2018-07-05] MEDS ORDERED: CEFEPIME 2 GM/NS 0.9% 100 ML 100 ML IV STA (07:48)
--- NOTE | 2018-07-05 07:51 | NUR ---
I called Dr Daylin Ahmadi after seeing pt in triage - he says to do straight cath of suprapubic stoma and send for UA and cx. He will talk to Francis Ahmadi.
[2018-07-05] MEDS ORDERED: VANCOMYCIN 1GM/NS 250 ML 250 ML IV ONE (08:00)
--- NOTE | 2018-07-05 08:20 | NUR ---
INCONTINENT CARE PROVIDED, CLEAN BREIF APPLIED, TOELRATED WELL. NO SIGNS OF ACUTE DISTRESS NOTED AT THIS TIME.
[2018-07-05] MEDS ORDERED: ONDANSETRON HCL INJ 2MG/ML 2ML 2 MG/ML VIAL IV PRN (08:30)
[2018-07-05] MEDS ORDERED: SODIUM CHLORIDE 0.9% 1000ML 1,000 ML IV ONE (08:30)
[2018-07-05 09:02] LABS: BASOPHILS % 0.4 % (0.0-1.0); EOSINOPHILS # (AUTO) 0.1 (0.0-0.4); EOSINOPHILS % 1.5 % (0.0-6.0); HEMATOCRIT 41.1 % (34.2-44.1); HEMOGLOBIN 12.8 g/dL (12.0-16.0); LYMPHOCYTES # (AUTO) 2.6 (1.0-3.2); LYMPHOCYTES % 27.5 % (18.0-39.1); MEAN CORPUSCULAR HEMOGLOBIN 28.3 pg (28-32); MEAN CORPUSCULAR HGB CONC 31.1 g/dL (31-35); MEAN CORPUSCULAR VOLUME 90.7 fL (81-99); MONOCYTES # (AUTO) 0.6 (0.2-0.8); MONOCYTES % 6.5 % (4.4-11.3); NEUTROPHILS % 63.8 % (38.7-80.0); PLATELET COUNT 246 x10e3/uL (140-360); RED BLOOD COUNT 4.53 x10e6/uL (3.6-5.1)
[2018-07-05 09:10] LABS: INR 1.02; PROTHROMBIN TIME 14.3 seconds (11.9-14.5)
[2018-07-05 09:11] LABS: PARTIAL THROMBOPLASTIN TIME 24.4 seconds (23.8-35.5)
[2018-07-05] MEDS ORDERED: MEROPENEM 500MG 500 MG in SODIUM CHLORIDE 0.9% 50ML 50 ML IV SCH (09:15)
[2018-07-05] MEDS ORDERED: HYDROCODONE/APAP 5MG-325MG TAB PO PRN (09:15)
[2018-07-05] MEDS ORDERED: QUETIAPINE FUMARATE 25 MG TAB PO PRN (09:15)
[2018-07-05] MEDS ORDERED: HYDRALAZINE HCL 20 MG/ML VIAL IV PRN (09:15)
[2018-07-05] MEDS ORDERED: ACETAMINOPHEN 325 MG TAB PO PRN (09:15)
[2018-07-05 09:16] LABS: ALBUMIN 3.5 g/dL (3.5-5.0); ALBUMIN/GLOBULIN RATIO 0.8 (0.8-2.0); ANION GAP 13.4 mmol/L (8-16); CALCIUM 9.6 mg/dL (8.4-10.2); CREATININE, SERUM 1.38 mg/dL (0.57-1.11); MAGNESIUM 1.4 MG/DL (1.3-2.1); POTASSIUM 4.4 mmol/L (3.5-5.1)
[2018-07-05 09:22] LABS: CLARITY,URINE CLOUDY (CLEAR); COLOR,URINE YELLOW (YELLOW)
[2018-07-05 09:22] LABS: CREATINE KINASE MB 0.9 ng/mL (0-5.0)
[2018-07-05 09:23] LABS: BILIRUBIN,URINE NEGATIVE (NEGATIVE); KETONES,URINE NEGATIVE (NEGATIVE); LEUKOCYTE ESTERASE ,URINE 2+ (NEGATIVE); NITRITE,URINE POSITIVE (NEGATIVE); PROTEIN,URINE DIPSTICK 2+ (NEGATIVE); URINE UROBILINOGEN 0.2 mg/dL (0.2 - 1)
[2018-07-05 09:24] LABS: AMORPHOUS SEDIMENT,URINE RARE (FEW); BACTERIA,URINE FEW /HPF; EPITHELIAL CELLS,URINE FEW /LPF; WBC,URINE (MAN) 21-50 /HPF (0-5)
--- NOTE | 2018-07-05 09:31 | Diagnostic Imaging Report ---
EXAMINATION: CHEST SINGLE (PORTABLE) INDICATION: Altered mental status COMPARISON: Chest radiograph 05/28/2018. FINDINGS: The patient's chin obscures visualization of the left lung apex. TUBES and LINES: None. LUNGS: Mild patchy bibasilar opacity, likely atelectasis. No evidence of lobar pneumonia. Mild biapical pleural-parenchymal scarring. PLEURA: No pleural effusion or pneumothorax. HEART AND MEDIASTINUM: The cardiomediastinal silhouette is unchanged. Large hiatal hernia. Atherosclerotic calcifications of the aortic arch. BONES AND SOFT TISSUES: No acute osseous abnormality. Degenerative changes of the shoulders. UPPER ABDOMEN: No free air under the diaphragm. IMPRESSION: The patient's chin obscures visualization of the left lung apex. Patchy bibasilar opacities, likely atelectasis without evidence of lobar pneumonia. Large hiatal hernia. Signed by: Dr. Nazia Brandon MD on 07/05/2018 9:27 AM
--- NOTE | 2018-07-05 09:33 | Diagnostic Imaging Report ---
CT BRAIN WO HISTORY: Confusion COMPARISON: MRI of the brain 05/31/2018 Technique: Noncontrast axial scans were obtained from skull base to the vertex. Coronal and sagittal reconstructions obtained from the axial data. One or more of the following dose reduction techniques were used: Automated exposure control, adjustment of the mA and/or kV according to patient size, and/or utilization of iterative reconstruction technique. DISCUSSION: Scalp/Skull: Unremarkable. Brain sulci: Mildly prominent. Ventricles: Compensatory dilatation. Extra-axial spaces: No masses or fluid collections. Carotid siphon and vertebral artery calcifications are present. Parenchyma: Moderate bilateral deep white matter hypodensity is likely chronic microvascular ischemic change. Associated old bilateral striatocapsular and bilateral thalamic lacunar infarcts are better seen on prior MRI. Otherwise, no masses, hemorrhage, or large vascular territory acute infarct. Dural sinuses: No abnormal densities. Sellar/Suprasellar region: Empty sella. Skull base: Intact. Incidental findings: Both ocular lenses are thinned. Mild left mandibular subcondylar deformity may be from remote trauma. IMPRESSION: 1. No acute intracranial abnormalities. 2. Advanced supratentorial chronic microvascular ischemic change. Mild generalized cerebral volume loss. Signed by: Dr. Mk Bailon M.D. on 07/05/2018 9:29 AM
--- NOTE | 2018-07-05 10:55 | NUR ---
VERBAL REPORT GIVEN TO CONY SMITH.
[2018-07-05] MEDS: SODIUM CHLORIDE 0.9% 1000ML 1,000 ML IV SCH ×2 (11:41→18:03)
[2018-07-05] MEDS ORDERED: CEFEPIME 2 GM/NS 0.9% 100 ML 100 ML IV SCH (12:00)
[2018-07-05] MEDS ORDERED: VANCOMYCIN 1GM/NS 250 ML 250 ML IV SCH (12:00)
[2018-07-05] MEDS: NYSTATIN 15 GM POWDER UD BTL TOP SCH ×3 (14:22→14:50)
[2018-07-05] MEDS: MEROPENEM 500MG 500 MG in SODIUM CHLORIDE 0.9% 50ML 50 ML IV SCH ×3 (14:22→23:48)
--- NOTE | 2018-07-05 17:00 | NUR ---
PT RECEIVED THE THE ROOM FROM ER. PT'S VITALS WNL. PT DENIES NEEDS AT THIS TIME.
--- NOTE | 2018-07-05 17:15 | NUR ---
THERE WAS NO HISTORIAN PRESENT TO HELP WITH PT'S AMS.
[2018-07-05 17:29] VITALS: BP 131/58
[2018-07-05 17:30] VITALS: BP 131/58
[2018-07-05 17:39] VITALS: BP 139/62
[2018-07-05] MEDS: ENOXAPARIN SOD INJ 40 MG/0.4 ML SYR SC SCH (18:03)
--- NOTE | 2018-07-05 18:18 | History and Physical ---
CHIEF COMPLAINT: Altered mental status, confusion, and fever. HISTORY OF PRESENT ILLNESS: An 87-year-old female, who is known to my service with multiple histories of metabolic encephalopathy due to urinary tract infections, was just discharged in May of 2018 with similar findings, now presents with worsening confusion and fever at home that occurred over the last several days according to the daughter. The patient does not currently have a suprapubic catheter and puts a diaper on top of her suprapubic stoma. According to the daughter, she has been more confused over the last day or so. She had developed a fever at home as well. No reports of chest pain, palpitation, or any other complaints. The patient was evaluated in the ER, currently alert and oriented x2. She is pleasant with no issues. Vital signs were stable when I evaluated her. REVIEW OF SYSTEMS: Pertinent positive for encephalopathy and fever. Pertinent negative for and denies any chest pain, palpitation, nausea, vomiting, diarrhea, dysuria, hematuria, frequency, urgency, lightheadedness, dizziness, abdominal pain, headaches, shortness of breath, cough, congestion, or any other complaints. Rest of the 14-point of review of systems are reviewed . ALLERGIES: NO KNOWN DRUG ALLERGIES. HOME MEDICATIONS: Vitamin B12 1000 mcg daily, magnesium oxide 400 mg p.o. b.i.d., and calcium carbonate 500 mg p.o. b.i.d. PAST MEDICAL HISTORY: 1. She has history of neurogenic bladder with suprapubic urinary catheter. 2. History of CVA in the past. 3. CKD, stage 2. 4. History of dementia. PAST SURGICAL HISTORY: Suprapubic catheter placement in the past, currently has no catheter. FAMILY HISTORY: Noncontributory. SOCIAL HISTORY: No good social support. PHYSICAL EXAMINATION: VITAL SIGNS: Temperature is 99.6, pulse is 92, respiratory rate is 16, blood pressure 160/63, and pulse ox 96% on room air. GENERAL: Not in acute distress. Alert and oriented x3. Cooperative on examination. HEENT: Head is normocephalic, atraumatic. Eyes, pupils equal and reactive to light bilaterally. Extraocular movements are intact bilaterally. NECK: Supple. Good range of motion . PULMONARY: Clear to auscultation bilaterally. No wheezing, rales, or rhonchi. No crackles appreciated. CARDIOVASCULAR: Positive S1 and S2. No murmur or gallop appreciated. ABDOMEN: Soft, nondistended, and nontender to palpation. Bowel sounds present. MUSCULOSKELETAL: Strength is 5/5 throughout . NEUROLOGIC: Cranial nerves II through XII grossly intact. . PSYCHIATRIC: Normal affect and mood. EXTREMITIES: No edema. Good range of motion throughout. LABORATORY DATA: White count 9.3, hemoglobin 12.9, hematocrit , and platelets of 246. Coagulation; PT 14.3, INR 1, and PTT 24. Chemistry; sodium 140, potassium 4.4, chloride 103, bicarb 28, anion gap of 13, BUN is , glucose is 110, lactic acid 11.3 which is normal at this hospital. Calcium 9.6, magnesium 1.4. LFTs were normal. Troponin is 0.004, albumin is 3.5. Urinalysis is concerning for underlying UTI, it is cloudy, 2+ protein, 3+ blood, positive nitrite, 2+ leukocyte esterase, 21 to 50 wbc's. Microbiology and blood and urine cultures are pending. IMAGING STUDIES: Chest x-ray, patchy bibasilar atelectasis with opacity pneumonia. She does have hiatal hernia. CT brain shows no acute intracranial abnormalities. IMPRESSION: 1. Metabolic encephalopathy likely due to underlying urinary tract infection. 2. History of neurogenic bladder, currently with no catheter placement. 3. Suprapubic fungal infection as well as vaginal fungal infection. 4. History of cerebrovascular accident in the past. 5. Chronic kidney disease, stage 2. PLAN: At this time, Urology was consulted. Discussed the case with them. No procedural intervention is needed. She will start on a diet and IV fluids. Blood and urine cultures collected. She will start on IV Merrem as she has a history in the past of having multidrug resistant UTI. Her UA is consistent with urinary tract infection. We will get a.m. labs. Put on Lovenox for DVT prophylaxis. The PT/OT to work with the patient. She will be started on regular diet. Start on IV fluids as the patient looks dehydrated on exam. We will add nystatin powder to the suprapubic area as well as the vaginal area concerned for fungal infection. MD ALFONZO Mason/MODL /[id number]
[2018-07-05 20:15] VITALS: BP 125/62
--- NOTE | 2018-07-05 20:38 | NUR ---
SHIFT REPORT RECEIVED BY DAY NURSE. PATIENT DENIES NEEDS AT THIS TIME. CALL LIGHT WITHIN REACH AND INSTRUCTED TO CALL FOR ASSISTANCE. PATIENT VERBALIZED UNDERSTANDING.
[2018-07-05 21:43] VITALS: BP 125/62
[2018-07-05 23:38] VITALS: BP 127/58
[2018-07-06] VITALS (8 sets, daily range): BP systolic 131–184; BP diastolic 63–85
[2018-07-06] MEDS: MEROPENEM 500MG 500 MG in SODIUM CHLORIDE 0.9% 50ML 50 ML IV SCH ×4 (05:07→23:30)
[2018-07-06 05:48] LABS: BASOPHILS % 0.4 % (0.0-1.0); EOSINOPHILS # (AUTO) 0.2 (0.0-0.4); EOSINOPHILS % 2.9 % (0.0-6.0); HEMATOCRIT 32.8 % (34.2-44.1); HEMOGLOBIN 10.3 g/dL (12.0-16.0); LYMPHOCYTES % 41.1 % (18.0-39.1); MEAN CORPUSCULAR HEMOGLOBIN 28.5 pg (28-32); MEAN CORPUSCULAR HGB CONC 31.4 g/dL (31-35); MEAN CORPUSCULAR VOLUME 90.6 fL (81-99); MONOCYTES # (AUTO) 0.5 (0.2-0.8); MONOCYTES % 6.4 % (4.4-11.3); NEUTROPHILS # (AUTO) 3.5 (2.1-6.9); NEUTROPHILS % 48.9 % (38.7-80.0); PLATELET COUNT 187 x10e3/uL (140-360); RED BLOOD COUNT 3.62 x10e6/uL (3.6-5.1); RED CELL DISTRIBUTION WIDTH 14.9 % (11.7-14.4)
[2018-07-06 06:04] LABS: ALBUMIN 2.5 g/dL (3.5-5.0); ALBUMIN/GLOBULIN RATIO 0.7 (0.8-2.0); ANION GAP 9.9 mmol/L (8-16); CALCIUM 8.4 mg/dL (8.4-10.2); CREATININE, SERUM 1.12 mg/dL (0.57-1.11); POTASSIUM 3.9 mmol/L (3.5-5.1)
[2018-07-06 06:24] LABS: CREATINE KINASE 34 IU/L (29-168)
--- NOTE | 2018-07-06 07:00 | NUR ---
SHIFT REPORT GIVEN BY NIGHT RN WHILE ROUNDING BS. PT DENIES NEEDS AT THIS TIME.
[2018-07-06] MEDS: NYSTATIN 15 GM POWDER UD BTL TOP SCH ×2 (09:35→17:24)
[2018-07-06] MEDS ORDERED: FLUCONAZOLE 100 MG TAB PO ONE ×2 (09:45→12:00)
[2018-07-06] MEDS ORDERED: FLUCONAZOLE 100 MG TAB ONE (11:14)
[2018-07-06] MEDS: SODIUM CHLORIDE 0.9% 1000ML 1,000 ML IV SCH (12:42)
--- NOTE | 2018-07-06 14:08 | Progress Note ---
DATE: 07/06/2018 Medicine Progress Note SUBJECTIVE: The patient is doing much better today. She is alert and oriented x3, back to her normal baseline. She has been afebrile with no issues. OBJECTIVE: VITAL SIGNS: Temperature is 97.4, pulse 74, respiratory rate is 18, blood pressure 148/68, and pulse ox 92% on room air. GENERAL: In no acute distress. Alert and oriented x3. Cooperative on examination. HEENT: Head is normocephalic and atraumatic. Eyes, pupils equal and reactive to light bilaterally. Extraocular movements are intact bilaterally. NECK: Supple. Good range of motion throughout. No evidence of erythema or exudates in the posterior pharynx. Has poor dentition. LUNGS: Clear to auscultation bilaterally. No wheezing, no rales, and no rhonchi, no crackles appreciated. CARDIOVASCULAR: Positive S1 and S2. No murmur or gallop appreciated. ABDOMEN: Soft, nondistended, and nontender to palpation. Bowel sounds are present. MUSCULOSKELETAL: Strength is 5/5 throughout. NEUROLOGIC: Cranial nerves II through XII are grossly intact. PSYCHIATRIC: Normal affect and mood. EXTREMITIES: No edema. Good range of motion throughout. LABORATORY DATA: Labs findings show white count 7.1, hemoglobin 10.3, hematocrit is 33, and platelets 187. Coagulation; PT 14, INR 1, and PTT 24. Chemistry; sodium 137, potassium 3.9, chloride 107, bicarb 24, anion gap of 9.9, BUN 24, and creatinine is 1.1. Rest of her electrolytes are stable. MICROBIOLOGY: Blood cultures, no growth. Urine culture is pending. IMPRESSION: 1. Metabolic encephalopathy, likely secondary to underlying urinary tract infection, improving. 2. History of neurogenic bladder, currently with no catheter needed. 3. Suprapubic fungal infection as well as vaginal fungal infection. 4. History of cerebrovascular accident in the past. 5. Chronic kidney disease, stage 2. PLAN: At this time, I am continuing with IV Merrem. Blood cultures, no growth. Urine cultures, no growth. Await for urine cultures to be positive. We will continue with IV Merrem for now. Urology is following as well. We will continue with nystatin powder as well. We will give Diflucan 100 mg p.o. x1 for the fungal infection that she has. Continue with Lovenox for DVT prophylaxis. Continue to work with PT and OT. She is on a regular diet. We will also decrease the IV fluids to 50 mL per hour to avoid volume overload. Otherwise, we will also get a.m. labs. The patient would like to be here for several more days until the cultures are back. MD ALFONZO Mason/MODL /[id number]
[2018-07-06] MEDS: ENOXAPARIN SOD INJ 40 MG/0.4 ML SYR SC SCH (17:28)
--- NOTE | 2018-07-06 19:00 | NUR ---
SHIFT REPORT RECEIVED BY DAY NURSE. PATIENT DENIES NEEDS AT THIS TIME. CALL LIGHT WITHIN REACH AND INSTRUCTED TO CALL FOR ASSISTANCE. PATIENT VERBALIZED UNDERSTANDING.
[2018-07-07] VITALS (7 sets, daily range): BP systolic 116–160; BP diastolic 56–82
[2018-07-07] MEDS: MEROPENEM 500MG 500 MG in SODIUM CHLORIDE 0.9% 50ML 50 ML IV SCH (05:34)
[2018-07-07 05:39] LABS: BASOPHILS % 0.4 % (0.0-1.0); EOSINOPHILS # (AUTO) 0.2 (0.0-0.4); EOSINOPHILS % 3.4 % (0.0-6.0); HEMATOCRIT 37.4 % (34.2-44.1); HEMOGLOBIN 11.6 g/dL (12.0-16.0); LYMPHOCYTES # (AUTO) 2.1 (1.0-3.2); LYMPHOCYTES % 30.6 % (18.0-39.1); MEAN CORPUSCULAR HEMOGLOBIN 28.5 pg (28-32); MEAN CORPUSCULAR VOLUME 91.9 fL (81-99); MONOCYTES # (AUTO) 0.5 (0.2-0.8); MONOCYTES % 6.6 % (4.4-11.3); NEUTROPHILS # (AUTO) 4.1 (2.1-6.9); NEUTROPHILS % 58.6 % (38.7-80.0); PLATELET COUNT 219 x10e3/uL (140-360); RED BLOOD COUNT 4.07 x10e6/uL (3.6-5.1)
[2018-07-07 05:54] LABS: ANION GAP 8.6 mmol/L (8-16); CALCIUM 8.5 mg/dL (8.4-10.2); CREATININE, SERUM 1.09 mg/dL (0.57-1.11); POTASSIUM 3.6 mmol/L (3.5-5.1)
[2018-07-07] MEDS: NYSTATIN 15 GM POWDER UD BTL TOP SCH ×2 (09:48→16:37)
[2018-07-07] MEDS ORDERED: FLUCONAZOLE 100 MG TAB PO ONE (10:30)
--- NOTE | 2018-07-07 12:17 | Progress Note ---
DATE: Medicine Progress Note SUBJECTIVE: The patient is doing much better today with no other issues. Her vaginal area and the suprapubic redness have improved tremendously with Diflucan and nystatin powder. She is otherwise afebrile with no other issues. OBJECTIVE: VITAL SIGNS: Temperature 98.4, pulse 74, respiratory rate is 16, blood pressure 157/60, and pulse ox 98% on room air. GENERAL: Not in acute distress. Oriented x3. Cooperative on examination. HEENT: Head is normocephalic and atraumatic. Eyes, pupils equal and reactive to light bilaterally. Extraocular movements are intact bilaterally. NECK: Supple. Good range of motion throughout. No evidence of erythema or exudates in the posterior pharynx. Has poor dentition. PULMONARY: Clear to auscultation bilaterally. No wheezing, no rales, and no rhonchi, no crackles appreciated. CARDIOVASCULAR: Positive S1 and S2. No murmurs, rubs, or gallops appreciated. ABDOMEN: Soft, nondistended, and nontender to palpation. Bowel sounds are present. MUSCULOSKELETAL: Strength is 5/5 throughout . NEUROLOGIC: Cranial nerves II through XII are grossly intact. PSYCHIATRIC: Normal affect and mood. EXTREMITIES: No edema. Good range of motion throughout. LABORATORY DATA: White count 6.9, hemoglobin 11.6, hematocrit is 37, platelets of 219. Chemistry; sodium 139, potassium 3.8, chloride 107, bicarb 27, anion gap of 8.6, BUN is 22, creatinine is 1, glucose is 101, calcium is 8.5, albumin is 2.5. MICROBIOLOGY: Blood cultures were negative. Urine cultures were Pseudomonas aeruginosa sensitive to Levaquin, Merrem, and Cipro. IMPRESSION: 1. Metabolic encephalopathy secondary to urinary tract infection, now resolved. 2. History of neurogenic bladder currently with no catheter needed. 3. Suprapubic fungal and vaginal infection, now improved. 4. History of cerebrovascular accident in the past. 5. Chronic kidney disease stage 2. PLAN: At this time, urine culture positive for Pseudomonas that shows some sensitivities for all antibiotics, but to make sure that we are treating it appropriately and the length of therapy is appropriate, we will go ahead and consult with ID. Blood cultures were negative. Continue with IV Merrem for now until ID comes and evaluates the patient. Urology is also following very closely. Labs reviewed were stable and vital signs were stable. MD ALFONZO Msaon/VEDA /[id number]
[2018-07-07] MEDS: MEROPENEM 500MG/ NS 50ML 50 ML IV SCH ×3 (12:33→23:52)
[2018-07-07] MEDS: ENOXAPARIN SOD INJ 40 MG/0.4 ML SYR SC SCH (16:37)
--- NOTE | 2018-07-07 17:22 | NUR ---
CASE MANAGEMENT INITIAL ASSESSMENT [employer] Worker to bedside to discuss plan of care with patient/family. CM/SW role and care transitions discussed. Anticipated discharge plan discussed along with duration of care. CM/SW discussed patients right to make decisions in care. CM/SW work hours given. Patient lives: FAMILY Admit/Transfer: ER Hospital/ER visits since last admit: NO POA/Emergency contact: DAUGHTER JORDY RIOS [phone] Current/Previous Home Health: [facility] PCP/Follow-up Care: Current/Previous DME: [facility] Other Services: NONE Employment Status: UNEMPLOYED Areas of Concerns: UTI Referral Needs: HH AND DME Education Needs: NONE IMM/SUAZO given and signed (if applicable): SIGNED AT ADMISSION Goal for discharge: SNF VS HOME CM/SW left business card at the bedside with contact information. Name and number was also written on the patients whiteboard. Patient verbalized understanding of discussion. CM will follow-up with ongoing discharge and transition of care needs.
[2018-07-07] MEDS: SODIUM CHLORIDE 0.9% 1000ML 1,000 ML IV SCH ×2 (18:15→23:55)
--- NOTE | 2018-07-08 00:05 | Consultation ---
DATE OF CONSULTATION: REASON FOR CONSULTATION: UTI. HISTORY OF PRESENT ILLNESS: This patient is an 87-year-old white female, who has been a good source of information. She does have underlying history of CVA in the past, chronic kidney disease, dementia, neurogenic bladder, status post suprapubic catheter. The patient comes in with altered mental status and fever. The patient had history of UTI before. She is coming with the above. The patient was admitted on July 05, 2018. The patient apparently was seen by Urology. She was started on IV antibiotics. She was started on meropenem because she is known to have history of multidrug resistant. The patient seems to be getting better. I am asked to see her today. The patient is currently up in the chair. Her culture is showing Pseudomonas aeruginosa, which was sensitive to Cipro as well as tobramycin and amikacin. PAST MEDICAL HISTORY: As above. PAST SURGICAL HISTORY: As above. SOCIAL HISTORY: Does not smoke. No drug abuse or alcohol abuse. FAMILY HISTORY: Unremarkable. LABORATORY DATA: White count 9.34, hemoglobin 12.8. Her sodium 139, potassium 3.6, creatinine 1.09. PHYSICAL EXAMINATION: GENERAL: She is currently alert, oriented, does not seem to be in acute distress. VITAL SIGNS: Stable. Currently afebrile. HEENT: She is not icteric. NECK: Supple. CHEST: Clear. HEART: S1 and S2, normal. ABDOMEN: Soft. Bowel sounds positive. EXTREMITIES: No edema. IMPRESSION: Urinary tract infection, to finish 14 days of total antibiotic and change to oral Cipro 250 mg p.o. b.i.d. for 2 weeks total including the antibiotic she is on. She has been on meropenem since admission. We will follow up. MD LAUREN Montano/VEDA /[id number]
[2018-07-08 00:21] VITALS: BP 161/70
[2018-07-08 04:00] VITALS: BP 159/72
--- NOTE | 2018-07-08 05:35 | NUR ---
Patient had 250ml urine through purewick catheter,assisted to cleaned and changed pad and applied nystatin power on suprapubic stoma site. Assisted to cleaned and changed diaper with help of Madiha at this time. Will continue to monitor.
[2018-07-08] MEDS: MEROPENEM 500MG/ NS 50ML 50 ML IV SCH (05:42)
--- NOTE | 2018-07-08 07:01 | NUR ---
Report given to oncoming nurse,walking round done.
[2018-07-08 07:28] VITALS: BP 147/66
[2018-07-08 07:45] VITALS: BP 147/66
[2018-07-08] MEDS: NYSTATIN 15 GM POWDER UD BTL TOP SCH (09:00)
[2018-07-08 11:23] VITALS: BP 130/74
[2018-07-08] MEDS ORDERED: CIPRO500 MG PO (12:37)
--- NOTE | 2018-07-08 14:14 | NUR ---
Pt discharged to home at this time. Discharge instructions given to pt and to daughter and both verbalized understanding of discharge instructions.
--- NOTE | 2018-07-09 08:47 | Discharge Summary ---
FINAL DISCHARGE DIAGNOSES: 1. Metabolic encephalopathy secondary to urinary tract infection. 2. History of neurogenic bladder. 3. Suprapubic fungal and vaginal infection, improved. 4. History of cerebrovascular accident in the past. 5. Chronic kidney disease, stage 2. CONSULTANTS: Urology and Infectious Disease. PHYSICAL EXAMINATION: VITAL SIGNS: Temperature is 98.4, pulse 68, respiratory rate is 18, blood pressure is 146/88. She is on room air. LAB FINDINGS: Show white count 6.9, hemoglobin 11.6, hematocrit 37.4, and platelets of 219. Chemistry: Sodium 139, potassium 3.8, chloride 107, bicarb 27, anion gap of 8, BUN 23, creatinine is 1, calcium is 8.5. Troponins were all negative. Urinalysis was positive. Microbiology shows urine culture positive for Pseudomonas, sensitive to Cipro. Blood cultures were negative. IMAGING STUDIES: Chest x-ray just shows a large hiatal hernia, did show some evidence of atelectasis. CT brain negative. HOSPITAL COURSE: This is an 87-year-old female with history of suprapubic urinary catheter, now has just a stoma for urination, presents with underlying metabolic encephalopathy and which her daughter brought her in for further evaluation. On arrival, the patient had a CT brain, which was found to be negative. Urine cultures were collected, found to be Pseudomonas. The patient was on broad-spectrum IV antibiotics. Urology and ID were consulted. The patient's encephalopathy improved while in the hospital discharged on Cipro 250 mg p.o. b.i.d. x14 days as per ID recommendations. She will go home with no [place] as well. The patient also had a fungal infection in the suprapubic area as well as vaginal area, which improved with oral Diflucan and nystatin powder. The patient has been cleared by the consultants for discharge home. On the day of discharge, vital signs stable, . The patient verbalized understanding and agrees with plan of care. Follow up on an outpatient with the primary care physician in 1 week, ID and Urology in 2 weeks' time. MEDICATIONS: See med reconciliation Cipro 250 mg capsule 1 tab p.o. b.i.d. x14 days. DISPOSITION: Home. CONDITION: Stable. DIET: Heart healthy. If there are any worsening symptoms, the patient is advised to come back to the ED for further evaluation. Time spent in discharge summary is greater than 35 minutes. MD ALFONZO Mason/MODHever /[id number]
== END 2018-07-08 14:14 | disposition home or self-care (01) | DRG 689 ==
LOC: ER 07:16 → ERHOLD 09:00 → OBSVTOIN 12:40 → MED/SURG3 17:10
PROVIDERS: ADMIT Internal Medicine; ATTEND Internal Medicine
DX: N39.0 Urinary tract infection, site not specified (principal); G93.41 Metabolic encephalopathy; B35.6 Tinea cruris; N31.2 Flaccid neuropathic bladder, not elsewhere classified; Z86.73 Personal history of transient ischemic attack (TIA), and cerebral infarction without residual deficits; I12.9 Hypertensive chronic kidney disease with stage 1 through stage 4 chronic kidney disease, or unspecified chronic kidney disease; N18.2 Chronic kidney disease, stage 2 (mild); B96.5 Pseudomonas (aeruginosa) (mallei) (pseudomallei) as the cause of diseases classified elsewhere; F03.90 Unspecified dementia, unspecified severity, without behavioral disturbance, psychotic disturbance, mood disturbance, and anxiety; Z16.24 Resistance to multiple antibiotics; K44.9 Diaphragmatic hernia without obstruction or gangrene; E86.0 Dehydration
CPT/HCPCS: 36415; 70450; 71045; 80048; 80053; 81001; 82550; 82553; 83605; 83735; 84484; 85025; 85610; 85730; 87040; 87086; 87186; 93005; 97139; 99284; J0360; J1650; J2185; J3370; J7030

== ENCOUNTER 2018-11-07 09:56 | Emergency (ER) | payer MEDICARE, BC ==
[~2018-11-07] VITALS: Ht 154.9 cm; Wt 75.3 kg
[~2018-11-07 09:56] MED LIST changes: +CIPRO500 MG PO
[2018-11-07 12:00] LABS: BASOPHILS % 0.5 % (0.0-1.0); EOSINOPHILS # (AUTO) 0.3 (0.0-0.4); EOSINOPHILS % 3.6 % (0.0-6.0); HEMATOCRIT 42.8 % (34.2-44.1); HEMOGLOBIN 12.8 g/dL (12.0-16.0); LYMPHOCYTES # (AUTO) 3.3 (1.0-3.2); MEAN CORPUSCULAR HEMOGLOBIN 26.9 pg (28-32); MEAN CORPUSCULAR HGB CONC 29.9 g/dL (31-35); MEAN CORPUSCULAR VOLUME 90.1 fL (81-99); MONOCYTES # (AUTO) 0.4 (0.2-0.8); MONOCYTES % 4.9 % (4.4-11.3); NEUTROPHILS # (AUTO) 3.6 (2.1-6.9); NEUTROPHILS % 46.7 % (38.7-80.0); PLATELET COUNT 219 x10e3/uL (140-360); RED BLOOD COUNT 4.75 x10e6/uL (3.6-5.1); RED CELL DISTRIBUTION WIDTH 15.5 % (11.7-14.4)
[2018-11-07 12:17] LABS: ANION GAP 13.2 mmol/L (8-16); CALCIUM 9.2 mg/dL (8.4-10.2); CREATININE, SERUM 1.09 mg/dL (0.57-1.11); POTASSIUM 4.2 mmol/L (3.5-5.1)
--- NOTE | 2018-11-07 12:40 | NUR ---
PEDIATRIC URINE COLLECTION BAG PLACED OVER SUPRAPUBIC AREA, PT HAS URINARY STOMA, URINE IS BEING EXPELLED FROM SITE. SITE IS NON-EDEMATOUS AND PINK IN COLOR.
[2018-11-07 13:19] LABS: CLARITY,URINE CLOUDY (CLEAR); COLOR,URINE YELLOW (YELLOW); LEUKOCYTE ESTERASE ,URINE 2+ (NEGATIVE); NITRITE,URINE NEGATIVE (NEGATIVE); URINE UROBILINOGEN 0.2 mg/dL (0.2 - 1)
[2018-11-07 13:20] LABS: BILIRUBIN,URINE SMALL (NEGATIVE); KETONES,URINE NEGATIVE (NEGATIVE); PROTEIN,URINE DIPSTICK 2+ (NEGATIVE)
[2018-11-07 13:28] LABS: AMORPHOUS SEDIMENT,URINE MODERATE (FEW); BACTERIA,URINE MODERATE /HPF
[2018-11-07] MEDS ORDERED: MEROPENEM 1GM 100 ML IV ONE (16:00)
[2018-11-07 18:44] VITALS: BP 142/78
== END 2018-11-07 18:45 | disposition home or self-care (01) ==
LOC: ER 09:56
DX: R30.0 Dysuria (principal); N30.01 Acute cystitis with hematuria; I10 Essential (primary) hypertension; Z86.73 Personal history of transient ischemic attack (TIA), and cerebral infarction without residual deficits; Z85.42 Personal history of malignant neoplasm of other parts of uterus
CPT/HCPCS: 36415; 80048; 81001; 85025; 87086; 87186; 99284; J2185

== ENCOUNTER 2019-01-16 17:59 | Emergency (ER) | payer MEDICARE, BC ==
[~2019-01-16] VITALS: Ht 154.9 cm; Wt 75.3 kg
[2019-01-16] MEDS ORDERED: SODIUM CHLORIDE 0.9% 1000ML 1,000 ML IV ONE (19:30)
--- NOTE | 2019-01-16 19:57 | Diagnostic Imaging Report ---
History: Weakness, tired. Comparison studies:CT head 07/05/2018 Technique: Axial images were obtained from the skull base to the vertex. Coronal and sagittal images reconstructed from the axial data. Intravenous contrast: None Dose modulation, iterative reconstruction, and/or weight based adjustment of the mA/kV was utilized to reduce the radiation dose to as low as reasonably achievable. Findings: Scalp/skull: No abnormalities. Extra-axial spaces: No masses. No fluid collections. Brain sulci: Moderately prominent. Ventricles: Mild compensatory dilatation. No hydrocephalus. Parenchyma: Scattered hypodensities in the supratentorial white matter are small vessel ischemic changes. Chronic lacunar infarcts at the right, farias radiata, striatocapsular and thalamocapsular regions. No masses, hemorrhage, acute or chronic cortical vascular insults. Sellar/suprasellar region: No abnormalities. Craniocervical junction: Patent foramen magnum. No Chiari one malformation. Incidental findings: Atherosclerotic calcifications in the carotid siphons and vertebral arteries . Impression: No acute abnormalities. No significant change from previous exam. Chronic findings: 1. Moderate generalized volume loss. 2. Moderate supratentorial white matter small vessel ischemic changes. 3. Right basal ganglia chronic lacunar infarcts. Signed by: DR Leon Isaacs M.D. on 01/16/2019 7:54 PM
--- NOTE | 2019-01-16 20:04 | Diagnostic Imaging Report ---
EXAMINATION: CHEST SINGLE (PORTABLE) INDICATION: ^weakness ^[id number] ^1929 ^Y COMPARISON: Chest radiograph 07/05/2018 FINDINGS: AP view TUBES and LINES: None. LUNGS: Lungs are well inflated. Bilateral upper lobes reticular scarring, unchanged. There is no evidence of pneumonia or pulmonary edema. PLEURA: No pleural effusion or pneumothorax. HEART AND MEDIASTINUM: The cardiac silhouette appears within normal limits. Large hiatal hernia is increased when compared to prior exam. BONES AND SOFT TISSUES: Degenerative changes of both shoulders with mild inferior subluxation of the left humeral head. Soft tissues are unremarkable. UPPER ABDOMEN: No free air under the diaphragm. IMPRESSION: Increase in size of the large hiatal hernia. Signed by: Dr. Tawny Joel M.D. on 01/16/2019 8:01 PM
--- NOTE | 2019-01-16 20:15 | NUR ---
IN AND OUT CATH DONE USING STERILE TECHNIQUE, TOLERATED WELL.
[2019-01-16 20:21] LABS: BASOPHILS % 0.3 % (0.0-1.0); EOSINOPHILS # (AUTO) 0.1 (0.0-0.4); EOSINOPHILS % 1.3 % (0.0-6.0); HEMOGLOBIN 12.8 g/dL (12.0-16.0); LYMPHOCYTES # (AUTO) 2.6 (1.0-3.2); LYMPHOCYTES % 29.4 % (18.0-39.1); MEAN CORPUSCULAR VOLUME 87.5 fL (81-99); MONOCYTES # (AUTO) 0.5 (0.2-0.8); MONOCYTES % 5.7 % (4.4-11.3); NEUTROPHILS # (AUTO) 5.4 (2.1-6.9); NEUTROPHILS % 62.7 % (38.7-80.0); PLATELET COUNT 224 x10e3/uL (140-360); RED BLOOD COUNT 4.57 x10e6/uL (3.6-5.1); RED CELL DISTRIBUTION WIDTH 15.9 % (11.7-14.4)
[2019-01-16 20:22] LABS: BILIRUBIN,URINE NEGATIVE (NEGATIVE); CLARITY,URINE SL CLOUDY (CLEAR); COLOR,URINE YELLOW (YELLOW); KETONES,URINE NEGATIVE (NEGATIVE); LEUKOCYTE ESTERASE ,URINE LARGE (NEGATIVE); NITRITE,URINE NEGATIVE (NEGATIVE); PROTEIN,URINE DIPSTICK TRACE (NEGATIVE); URINE UROBILINOGEN 1 mg/dL (0.2 - 1)
[2019-01-16 20:34] LABS: BACTERIA,URINE MODERATE /HPF; RENAL EPITHELIAL CELLS,URINE FEW
[2019-01-16 20:37] LABS: ALBUMIN 2.9 g/dL (3.5-5.0); ALBUMIN/GLOBULIN RATIO 0.6 (0.8-2.0); ANION GAP 13.2 mmol/L (8-16); CALCIUM 9.6 mg/dL (8.4-10.2); CREATININE, SERUM 1.44 mg/dL (0.57-1.11); POTASSIUM 3.2 mmol/L (3.5-5.1)
[2019-01-16 20:43] LABS: CREATINE KINASE MB 1.9 ng/mL (0-5.0)
[2019-01-16] MEDS ORDERED: POTASSIUM CHLORIDE 20 MEQ TAB CR PO NR (21:00)
--- NOTE | 2019-01-16 21:00 | NUR ---
UNABLE TO START IV, PT SUNSHINE VASQUEZ MD AWARE, INST NOT TO CONT IV ATTEMPTS, MD WILL REASSESS AND DISCUSS PLAN OF CARE WITH FAMILY
== END 2019-01-16 22:30 | disposition home or self-care (01) ==
LOC: ER 17:59
DX: R53.1 Weakness (principal); E87.6 Hypokalemia; K52.9 Noninfective gastroenteritis and colitis, unspecified; N30.91 Cystitis, unspecified with hematuria
CPT/HCPCS: 36415; 70450; 71045; 80053; 81001; 82550; 82553; 84484; 85025; 87086; 87186; 93005; 99284

== ENCOUNTER 2019-02-05 18:40 | Emergency (ER) | payer MEDICARE, BC ==
[~2019-02-05] VITALS: Ht 154.9 cm; Wt 75.3 kg
[2019-02-05] MEDS ORDERED: FUROSEMIDE 40 MG TAB PO ONE (20:45)
[2019-02-05] MEDS ORDERED: TRIMETHOPRIM/SULFAMETHOXAZOLE 160-800 MG TAB PO ONE (20:45)
[2019-02-05] MEDS ORDERED: FUROSEMIDE 40 MG TAB ONE (20:48)
[2019-02-05] MEDS ORDERED: TRIMETHOPRIM/SULFAMETHOXAZOLE 160-800 MG TAB ONE (20:49)
== END 2019-02-05 20:30 | disposition home or self-care (01) ==
LOC: ER 18:40
DX: R30.0 Dysuria (principal); N30.91 Cystitis, unspecified with hematuria
CPT/HCPCS: 99283